=== PATIENT | male | born 1950 | race Caucasian/White ===

== ENCOUNTER → 2016-05-31 | Outpatient (CLI) | payer BC, OTHER ==
[~2016-05-31] MED LIST: GASTROGRAFIN SOLUTION 30ML (Q9963) As Ordered ONE; ISOVUE-370 76% 100ML VIAL (Q9967) As Ordered ONE
--- NOTE | 2016-06-03 09:24 | REP ---
CT of the abdomen and pelvis 05/31/2016 CT of the abdomen and pelvis performed initially without contrast with IV and oral contrast and delayed images of the abdomen Findings: Small amount of fibrotic scarring and/or atelectasis is present in lung bases bilaterally , left greater than right and lingula.. There is mild diffuse fatty infiltration of liver. Spleen pancreas are normal. Gallbladder without stones wall thickening or biliary dilatation. There are multiple bilateral renal cortical cysts, largest 6.6 cm diameter in the posterior superior pole of the right kidney. There is no hydronephrosis bilaterally and stomach and small bowel are within normal limits. The terminal ileum is normal. The appendix is without inflammation abdominal aorta is of normal course and caliber. Several small sub centimeter retroperitoneal nodes are present within the periaortic region in the upper abdomen and also few prominent venous collaterals. There is a 9 mm umbilical hernia containing omental fat only Bladder is contracted prostate is normal. There are scattered colonic diverticula. There is no free air or ascites. Impression 1. Unremarkable appendix 2. Gallbladder is slightly generous in size without stones or biliary dilatation. 3. Multiple bilateral renal cortical cysts, largest 6.6 cm off the posterior superior pole of the right kidney. 4. Multiple abdominal mesenteric lymph nodes, none of which are pathologically enlarged. These could be reactive in etiology or secondary to lymphoproliferative process. Clinical follow-up recommended. 5. Scattered colonic diverticula Signed by Aracelis Farris MD 06/03/2016 09:15 A
== END ==
LOC: M RAD 16:05
PROVIDERS: ATTEND Family Medicine
DX: R10.31 Right lower quadrant pain (principal)
CPT/HCPCS: 74178; Q9963; Q9967

== ENCOUNTER → 2016-07-01 | Outpatient (CLI) | payer BC, OTHER ==
--- NOTE | 2016-07-01 14:37 | REP ---
Clinical: Acute cough . Comparison: 10/14/2015 . Technique: PA and lateral. Findings: The mediastinum and cardiac silhouette are normal. The lung guaman are clear and without acute consolidation, effusion, or pneumothorax. The skeletal structures are intact and normal. Impression: 1. No acute cardiopulmonary process. Signed by Reynaldo Mcneal MD 07/01/2016 02:29 P
== END ==
LOC: M RAD 14:10
PROVIDERS: ATTEND Family Medicine
DX: R05 Cough (principal)

== ENCOUNTER → 2016-09-23 | Outpatient (CLI) | payer BC, OTHER ==
--- NOTE | 2016-09-23 14:39 | REP ---
Clinical: Follow up. History of renal cysts and prominent mesenteric lymph nodes. Technique: Axial contrast enhanced images from the lung bases to the pubic symphysis using oral and 100 ml Isovue 370 intravenous contrast material along with precontrast and delayed images of the abdomen as well as coronal and sagittal re-formations. Comparison: 05/31/2016. Findings: Lung bases demonstrate chronic bibasilar fibroatelectatic changes (left greater than right). Liver, spleen, pancreas, gallbladder, and bilateral adrenal glands are normal. Kidneys demonstrate prominent stable bilateral cysts measuring approximately 7.5 cm in the right kidney and 6.1 cm in left kidney. The enteric system is without obstruction or acute inflammatory process. Scattered sigmoid diverticula noted without acute diverticulitis. Normal terminal ileum and appendix identified in the right lower quadrant. This demonstrates normal bladder and age appropriate prostate/seminal vesicles. Scattered mesenteric lymph nodes are unchanged and nonspecific - measuring up to 1.5 cm in the left mid abdomen. No ascites. No free air. Small fat containing periumbilical hernia. Abdominal aorta and vasculature without aneurysm or dissection. Musculoskeletal structures demonstrate degenerative changes primarily involving the visualized thoracolumbar spine and pelvis. Impression: 1. Stable bilateral renal cysts. 2. Few scattered sigmoid diverticula without acute diverticulitis. 3. Mildly prominent mesenteric lymph nodes unchanged from prior examination measuring up to 1.5 cm maximal diameter in the left mid abdomen. 4. Further chronic stable changes as described above. No acute intra-abdominal or pelvic pathology otherwise noted. Signed by Reynaldo Mcneal MD 09/23/2016 02:30 P
== END ==
LOC: M RAD 11:33
PROVIDERS: ATTEND Family Medicine
DX: R93.5 Abnormal findings on diagnostic imaging of other abdominal regions, including retroperitoneum (principal); K57.30 Diverticulosis of large intestine without perforation or abscess without bleeding; N28.1 Cyst of kidney, acquired; R59.9 Enlarged lymph nodes, unspecified
CPT/HCPCS: 74178; Q9963; Q9967

== ENCOUNTER → 2016-10-02 | Outpatient (CLI) | payer BC, OTHER | LOC: M SMT 10:31 | PROVIDERS: ATTEND Urology | DX: N52.9 Male erectile dysfunction, unspecified (principal) ==

== ENCOUNTER → 2017-03-20 | Outpatient (REF) | payer MEDICARE, OTHER | LOC: M SMT 17:08 | PROVIDERS: ATTEND Urology | DX: N40.1 Benign prostatic hyperplasia with lower urinary tract symptoms (principal); Z01.818 Encounter for other preprocedural examination ==

== ENCOUNTER → 2017-06-11 | Outpatient (REF) | payer MEDICARE, OTHER ==
[2017-06-11 18:50] LABS: APPEARANCE, URINE CLEAR (CLEAR); BACTERIA, URINE AUTO 1+ (NEGATIVE); BILIRUBIN, URINE AUTO NEGATIVE (NEGATIVE); BLOOD, URINE BLOOD NEGATIVE (NEGATIVE); COLOR, URINE STRAW (YELLOW); GLUCOSE, URINE (UA) AUTO NEGATIVE (NEGATIVE); KETONE, URINE AUTO NEGATIVE (NEGATIVE); LEUKOCYTE ESTERASE, URINE AUTO TRACE (NEGATIVE); NITRITE, URINE AUTO NEGATIVE (NEGATIVE); PROTEIN, URINE AUTO NEGATIVE (NEGATIVE); RBC, URINE AUTO 0 /HPF (0-3); SPECIFIC GRAVITY URINE AUTO 1.003 (1.002-1.035); SQUAMOUS EPITHELIAL CELL UR AU 0 /HPF (0-6); UROBILINOGEN, URINE AUTO 0.2 mg/dL (0.0-2.0); WBC, URINE AUTO 4 /HPF (0-3)
== END ==
LOC: M SMT 17:06
DX: N40.1 Benign prostatic hyperplasia with lower urinary tract symptoms (principal)
CPT/HCPCS: 81001

== ENCOUNTER 2017-12-16 08:05 | Day surgery (SDC) | payer MEDICARE, BC, OTHER ==
[2017-12-16] MEDS: NS 1,000 ML IV (08:29)
[2017-12-16] MEDS ORDERED: PROPOFOL 200 MG/20 ML VIAL As Ordered (08:50)
[2017-12-16] MEDS ORDERED: LIDOCAINE 2% INJ 100 MG/5 ML SDV (FOR ANES.) As Ordered ×2 (08:50→09:37)
== END 2017-12-16 10:44 | disposition home or self-care (01) ==
LOC: M OPP 08:05
DX: Z12.11 Encounter for screening for malignant neoplasm of colon (principal); K64.0 First degree hemorrhoids; K57.30 Diverticulosis of large intestine without perforation or abscess without bleeding; I10 Essential (primary) hypertension; E78.5 Hyperlipidemia, unspecified; Z86.11 Personal history of tuberculosis; M19.90 Unspecified osteoarthritis, unspecified site; J45.909 Unspecified asthma, uncomplicated; G47.30 Sleep apnea, unspecified; N40.1 Benign prostatic hyperplasia with lower urinary tract symptoms; Z79.82 Long term (current) use of aspirin; Z79.899 Other long term (current) drug therapy; Z80.9 Family history of malignant neoplasm, unspecified
CPT/HCPCS: G0121

== ENCOUNTER 2018-01-15 18:49 | Emergency (ER) | payer OTHER, MEDICARE, BC | END 2018-01-15 21:29 | disposition home or self-care (01) | LOC: M ED 18:49 | DX: S16.1XXA Strain of muscle, fascia and tendon at neck level, initial encounter (principal); V49.49XA Driver injured in collision with other motor vehicles in traffic accident, initial encounter; Y92.410 Unspecified street and highway as the place of occurrence of the external cause; I10 Essential (primary) hypertension; J45.909 Unspecified asthma, uncomplicated; E78.00 Pure hypercholesterolemia, unspecified; G47.30 Sleep apnea, unspecified; Z79.899 Other long term (current) drug therapy; Z79.82 Long term (current) use of aspirin; Z91.012 Allergy to eggs | CPT/HCPCS: 70450 ==

== ENCOUNTER → 2018-01-15 | Outpatient (CLI) | payer OTHER | LOC: M LRY 17:40 | DX: M54.2 Cervicalgia (principal) | CPT/HCPCS: 72052 ==

== ENCOUNTER → 2018-03-02 | Outpatient (CLI) | payer MEDICARE, BC, OTHER ==
[2018-03-02 14:18] LABS: BASO % 0.8 % (0.0-1.0); EOS # 0.2 10^3/uL (0.0-0.50); EOS % 4.2 % (0.0-3.0); HEMATOCRIT 48.7 % (42.0-52.0); HEMOGLOBIN 15.6 g/dl (13.5-17.5); IMMATURE GRANULOCYTE % 0.4 % (0-3.0); LYMPH # 0.7 10^3/uL (1.5-4.5); LYMPH % 14.3 % (24.0-44.0); MEAN CORPUSCULAR HEMOGLOBIN 28.9 pg (27.0-33.0); MEAN CORPUSCULAR VOLUME 90.4 fl (80.0-96.0); MONO # 0.5 10^3/uL (0.0-0.8); MONO % 10.9 % (0.0-5.0); NEUTROPHILS # 3.3 10^3/uL (1.8-7.7); NEUTROPHILS % 69.4 % (36.0-66.0); PLATELET COUNT, AUTOMATED 240 10^3/uL (150-450); RED BLOOD COUNT 5.39 10^6/uL (4.30-6.10); RED CELL DISTRIBUTION WIDTH 13.1 % (11.5-14.5); WHITE BLOOD COUNT 4.8 10^3/uL (4.0-10.0)
[2018-03-02 15:05] LABS: ALBUMIN 4.1 GM/DL (3.2-5.2); ALBUMIN/GLOBULIN RATIO 1.28 (1.00-1.93); ALKALINE PHOSPHATASE 82 U/L (45-117); ALT/SGPT 49 U/L (12-78); ANION GAP 8 MEQ/L (8-16); AST/SGOT 35 U/L (7-37); BILIRUBIN,TOTAL 0.4 MG/DL (0.2-1.0); BLOOD UREA NITROGEN 27 MG/DL (7-18); CALCIUM LEVEL 9.1 MG/DL (8.8-10.2); CARBON DIOXIDE LEVEL 29 MEQ/L (21-32); CHLORIDE LEVEL 105 MEQ/L (98-107); CREATININE FOR GFR 1.16 MG/DL (0.70-1.30); GLOMERULAR FILTRATION RATE > 60.0 (>49); GLUCOSE, FASTING 102 MG/DL (70-100); POTASSIUM SERUM 4.3 MEQ/L (3.5-5.1); SODIUM LEVEL 142 MEQ/L (136-145); TOTAL PROTEIN 7.3 GM/DL (6.4-8.2)
== END ==
LOC: M SMT 09:24
DX: Z01.812 Encounter for preprocedural laboratory examination (principal); M79.671 Pain in right foot; M20.41 Other hammer toe(s) (acquired), right foot
CPT/HCPCS: 80053

== ENCOUNTER 2018-03-13 08:38 | Day surgery (SDC) | payer MEDICARE, BC, OTHER ==
[2018-03-13] MEDS: LR 1,000 ML IV ×2 (09:28)
[2018-03-13] MEDS ORDERED: LIDOCAINE 2% MDV 20 ML VIAL As Ordered ×2 (10:27)
[2018-03-13] MEDS ORDERED: BUPIVACAINE HCL 0.5% 30 ML VIAL As Ordered ×2 (10:27)
[2018-03-13] MEDS ORDERED: dexameTHASONE 4 MG/ML 1ML VIAL (J1100) As Ordered ×2 (10:27)
[2018-03-13] MEDS ORDERED: NEOSPORIN GU IRRIG 20 ML VIAL As Ordered ×2 (10:27)
[2018-03-13] MEDS ORDERED: BACITRACIN PWD 50,000 UNITS VIAL As Ordered ×2 (10:27)
[2018-03-13] MEDS ORDERED: MIDAZOLAM INJ 2 MG/2 ML VIAL (J2250) As Ordered ×2 (10:55)
[2018-03-13] MEDS ORDERED: LIDOCAINE 2% INJ 100 MG/5 ML SDV (FOR ANES.) As Ordered ×2 (10:55)
[2018-03-13] MEDS ORDERED: KETOROLAC 60 MG/2 ML VIAL (J1885) As Ordered ×4 (10:55)
[2018-03-13] MEDS ORDERED: fentaNYL 100 MCG/2 ML INJECTION (J3010) As Ordered ×2 (10:55)
[2018-03-13] MEDS ORDERED: METOCLOPRAMIDE INJ 10MG/2ML VIAL (J2765) As Ordered ×2 (10:55)
[2018-03-13] MEDS ORDERED: PROPOFOL 200 MG/20 ML VIAL As Ordered ×2 (10:55)
[2018-03-13] MEDS ORDERED: ONDANSETRON 4MG/2ML VIAL (J2405) As Ordered ×2 (10:55)
[2018-03-13] MEDS ORDERED: ONDANSETRON 4MG/2ML VIAL (J2405) IV ×2 (12:15)
[2018-03-13] MEDS ORDERED: PERCOCET 5MG/325MG TAB PO ×2 (12:15)
== END 2018-03-13 13:00 | disposition home or self-care (01) ==
LOC: M SDC 08:38
DX: M20.41 Other hammer toe(s) (acquired), right foot (principal); M20.61 Acquired deformities of toe(s), unspecified, right foot; E78.5 Hyperlipidemia, unspecified; I10 Essential (primary) hypertension; N40.0 Benign prostatic hyperplasia without lower urinary tract symptoms; Z79.899 Other long term (current) drug therapy; J45.909 Unspecified asthma, uncomplicated
CPT/HCPCS: 28285

== ENCOUNTER 2018-10-09 14:07 | Emergency (ER) | payer MEDICARE, BC, OTHER ==
[~2018-10-09] VITALS: Ht 185.4 cm; Wt 109.6 kg
[~2018-10-09 14:07] MED LIST changes: +ASPI-255 PO; +ASPI1CHW2 PO; +ATOR1TAB21 PO; +BENA25CA4 PO; +FLON1SPR; -GASTROGRAFIN SOLUTION 30ML (Q9963) As Ordered ONE; +IBUP200C25 PO; -ISOVUE-370 76% 100ML VIAL (Q9967) As Ordered ONE; +LOSA50TA88 PO; +MONT10TA2 PO; +MULTCAP PO; +PROAAER10 INH; +SILD1TAB8 PO; +SYMB16INH INH; +SYMB80INH INH; +TYLE500T78 PO
[2018-10-09] MEDS ORDERED: VIAG100T (14:15)
[2018-10-09] MEDS ORDERED: CELE1CAP9 (14:15)
[2018-10-09] MEDS ORDERED: ROBA500T PO (15:21)
[2018-10-09] MEDS ORDERED: IBUP-1022 PO (15:21)
[2018-10-09 15:32] VITALS: BP 161/94
== END 2018-10-09 15:47 | disposition home or self-care (01) ==
LOC: M ED 14:07
DX: S39.012A Strain of muscle, fascia and tendon of lower back, initial encounter (principal); Y92.79 Other farm location as the place of occurrence of the external cause; Y93.K9 Activity, other involving animal care; I10 Essential (primary) hypertension; J45.909 Unspecified asthma, uncomplicated; Z79.51 Long term (current) use of inhaled steroids; Z79.899 Other long term (current) drug therapy; Z91.012 Allergy to eggs

== ENCOUNTER → 2019-07-29 | Outpatient (CLI) | payer MEDICARE, BC, OTHER ==
[~2019-07-29] MED LIST changes: +CELE1CAP9; +IBUP-1022 PO; -MONT10TA2 PO; +MONT10TA4 PO; +ROBA500T PO; +VIAG100T
--- NOTE | 2019-08-03 15:56 | SLEEPCENT ---
DATE OF PROCEDURE: 07/29/2019 ORDERED BY: Emi Levy NP Nocturnal polysomnography was performed for the titration of pressure therapy in this patient with obstructive sleep apnea syndrome. For testing a ResMed AirFit F20 full-face mask of medium size was used; 13 cm of water pressure was initially applied to the circuit and the lights were extinguished. 7 hours and 37 minutes of data were reviewed. There were 248 minutes of sleep identified. Sleep latency was prolonged at 24 minutes. Rapid eye movement (REM) latency was prolonged at 191 minutes. Sleep architecture improved later in the study on optimal pressure therapy. Overall sleep efficiency was reduced by periods of wake to 56%. The patient's electrocardiogram showed a sinus rhythm with an average heart rate of 68 beats per minute. Electroencephalogram (EEG) showed normal waveforms for awake and sleep. Respiratory events were palliated with CPAP at a pressure of +16. IMPRESSION: Obstructive sleep apnea syndrome (G47.33). RECOMMENDATIONS: Nightly use of pressure therapy 16 cm of water.
== END ==
LOC: M SLEEP 20:13
PROVIDERS: ATTEND Nurse Practitioner Adult Health
DX: G47.33 Obstructive sleep apnea (adult) (pediatric) (principal)

== ENCOUNTER → 2020-04-21 | Outpatient (CLI) | payer OTHER ==
[~2020-04-21] MED LIST changes: -MONT10TA4 PO; +MONT5TAB2 PO
--- NOTE | 2020-04-21 09:52 | REPVR ---
PROCEDURE INFORMATION: Exam: MR Lumbar Spine Without Contrast. Exam date and time: 04/21/2020 8:07 AM Age: 70 years old Clinical indication: Low back pain; Patient HX: Lbp TECHNIQUE: Imaging protocol: Multiplanar magnetic resonance images of the lumbar spine without intravenous contrast. COMPARISON: No relevant prior studies available. FINDINGS: Vertebrae: Modic type 1 changes along the endplates L2-L3 and L3-L4 discs. Spinal cord: Conus at L1.. L1-L2: Disc desiccation changes and bilateral facet hypertrophy. Mild to moderate stenosis of the spinal canal due to combination of broad central disc bulge and buckling of ligamentum flavum. L2-L3: Marked disc desiccation changes with loss of intervertebral disc height. Small annular fiber tear. Mild stenosis of the spinal canal due to broad central disc bulge. No neural foraminal stenosis. L3-L4: Marked desiccation changes with loss of intervertebral disc height. Severe stenosis of the spinal canal and right neural foramen due to combination right paracentral disc bulge and severe right facet arthropathy. Clumping of the cauda equina is noted at this level.. L4-L5: Marked desiccation changes with loss of intervertebral disc height. Severe stenosis of the spinal canal and bilateral neural foramen due to combination broad left paracentral disc protrusion and severe bilateral facet arthropathy. Clumping of the cauda equina is noted at this level.. L5-S1: Disc desiccation changes. Bilateral facet arthropathy. No significant spinal canal stenosis. Mild bilateral neural foraminal stenosis. Soft tissues: Unremarkable. 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 Electronically signed by: Christoph Page On 04/21/2020 09:51:54 AM
== END ==
LOC: M RAD 06:43
PROVIDERS: ATTEND Family Medicine
DX: M48.061 Spinal stenosis, lumbar region without neurogenic claudication (principal); M25.78 Osteophyte, vertebrae

== ENCOUNTER → 2021-02-26 | Outpatient (CLI) | payer OTHER, MEDICARE, BC ==
[~2021-02-26] MED LIST changes: +MONT10TA10 PO; -MONT5TAB2 PO
[2021-02-26 14:21] LABS: HEMATOCRIT 50.4 % (42.0-52.0); HEMOGLOBIN 16.3 g/dl (13.5-17.5); MEAN CORPUSCULAR HEMOGLOBIN 29.1 pg (27.0-33.0); MEAN CORPUSCULAR HGB CONC 32.3 g/dl (32.0-36.5); PLATELET COUNT, AUTOMATED 221 10^3/uL (150-450); WHITE BLOOD COUNT 5.4 10^3/uL (4.0-10.0)
[2021-02-26 14:52] LABS: ALT/SGPT 39 U/L (12-78); BILIRUBIN,TOTAL 0.5 MG/DL (0.2-1.0); BLOOD UREA NITROGEN 22 MG/DL (7-18); CALCIUM LEVEL 8.8 MG/DL (8.8-10.2); CARBON DIOXIDE LEVEL 29 MEQ/L (21-32); CHLORIDE LEVEL 106 MEQ/L (98-107); CHOLESTEROL LEVEL 182 MG/DL (<200); CHOLESTEROL RISK RATIO 2.983 (<5); CREATININE FOR GFR 1.24 MG/DL (0.70-1.30); GLOMERULAR FILTRATION RATE > 60.0 (>49); GLUCOSE, FASTING 100 MG/DL (70-100); HDL CHOLESTEROL 61 MG/DL (>40); LDL CHOLESTEROL 97 MG/DL (<100); NON-HDL-C 121 MG/DL; POTASSIUM SERUM 4.4 MEQ/L (3.5-5.1); SODIUM LEVEL 140 MEQ/L (136-145); TOTAL PROTEIN 7.5 GM/DL (6.4-8.2); TRIGLYCERIDES LEVEL 121 MG/DL (<150)
== END ==
LOC: M PLALAB 09:10
PROVIDERS: ATTEND Family Medicine
DX: I10 Essential (primary) hypertension (principal)

== ENCOUNTER → 2021-03-14 | Outpatient (CLI) | payer MEDICARE, BC, OTHER ==
[2021-03-15 23:12] LABS: PSA % FREE 10.6 % (.); PSA FREE 0.55 ng/mL; PSA TOTAL 5.2 ng/mL (0.0-4.0)
== END ==
LOC: M PLALAB 13:00
PROVIDERS: ATTEND Nurse Practitioner Women's Health
DX: R97.20 Elevated prostate specific antigen [PSA] (principal)

== ENCOUNTER → 2021-04-06 | Outpatient (CLI) | payer MEDICARE, BC, OTHER ==
[~2021-04-06] MED LIST changes: +LOSA50TA28 PO; -LOSA50TA88 PO; -MONT10TA10 PO; +MONT10TA97 PO
== END ==
LOC: M LAB 13:43
PROVIDERS: ATTEND Nurse Practitioner Women's Health
DX: R97.20 Elevated prostate specific antigen [PSA] (principal)

== ENCOUNTER → 2021-04-17 | Outpatient (REF) | payer MEDICARE, BC, OTHER | LOC: M SMT PRO 13:05 | PROVIDERS: ATTEND Urology | DX: C61 Malignant neoplasm of prostate (principal); R97.20 Elevated prostate specific antigen [PSA] | CPT/HCPCS: 55700; 76942; G0416; G0463 ==

== ENCOUNTER → 2021-07-17 | Outpatient (CLI) | payer MEDICARE, BC, OTHER | LOC: M PLALAB 14:37 | PROVIDERS: ATTEND Urology | DX: C61 Malignant neoplasm of prostate (principal) ==

== ENCOUNTER → 2021-10-23 | Outpatient (CLI) | payer MEDICARE, BC, OTHER | LOC: M PLALAB 13:23 | PROVIDERS: ATTEND Family Medicine | DX: E55.9 Vitamin D deficiency, unspecified (principal); C61 Malignant neoplasm of prostate ==

== ENCOUNTER → 2021-10-23 | Outpatient (CLI) | payer MEDICARE, BC, OTHER | LOC: M PLALAB 13:25 | PROVIDERS: ATTEND Urology | DX: C61 Malignant neoplasm of prostate (principal) ==

== ENCOUNTER → 2022-04-17 | Outpatient (CLI) | payer MEDICARE, BC, OTHER ==
[~2022-04-17] MED LIST changes: +**SFHN** LIDOCAINE 1% MDV 20ML VIAL ONE; +**SFHN** methylPREDNISolone 40MG 1ML VIAL ONE; +ISOVUE-300 61% 50ML VIAL ONE
== END ==
LOC: M PLAIMG 13:35
PROVIDERS: ATTEND Physician Assistant Surgical
DX: M75.52 Bursitis of left shoulder (principal)
CPT/HCPCS: 20610; 76000; J2920; Q9967

== ENCOUNTER → 2022-05-14 | Outpatient (CLI) | payer MEDICARE, BC, OTHER ==
[~2022-05-14] MED LIST changes: -**SFHN** LIDOCAINE 1% MDV 20ML VIAL ONE; -**SFHN** methylPREDNISolone 40MG 1ML VIAL ONE; -ISOVUE-300 61% 50ML VIAL ONE
[2022-05-14 14:30] LABS: CHOLESTEROL RISK RATIO 2.93 (<5); HDL CHOLESTEROL 61.3 MG/DL (>40); LDL CHOLESTEROL 93.7 MG/DL (<100)
[2022-05-14 14:32] LABS: TOTAL 25(OH) VITAMIN D 32.7 NG/ML (20.0-100.0)
== END ==
LOC: M PLALAB 09:53
PROVIDERS: ATTEND Family Medicine
DX: E55.9 Vitamin D deficiency, unspecified (principal); E78.49 Other hyperlipidemia; C61 Malignant neoplasm of prostate

== ENCOUNTER → 2022-05-14 | Outpatient (CLI) | payer MEDICARE, BC, OTHER | LOC: M PLALAB 09:55 | PROVIDERS: ATTEND Urology | DX: C61 Malignant neoplasm of prostate (principal); E55.9 Vitamin D deficiency, unspecified; E78.49 Other hyperlipidemia ==

== ENCOUNTER → 2022-07-16 | Outpatient (CLI) | payer MEDICARE, BC, OTHER ==
[~2022-07-16] MED LIST changes: +PROHANCE 279.3MG/ML 15ML VIAL ONE; +PROHANCE 279.3MG/ML 5ML VIAL ONE
== END ==
LOC: M PLAIMG 07:56
PROVIDERS: ATTEND Urology
DX: C61 Malignant neoplasm of prostate (principal)
CPT/HCPCS: 72197; A9576

== ENCOUNTER → 2022-09-03 | Outpatient (REF) | payer MEDICARE, BC, OTHER ==
[~2022-09-03] MED LIST changes: -PROHANCE 279.3MG/ML 15ML VIAL ONE; -PROHANCE 279.3MG/ML 5ML VIAL ONE
== END ==
LOC: M SMT 10:11
PROVIDERS: ATTEND Urology
DX: C61 Malignant neoplasm of prostate (principal)

== ENCOUNTER 2022-10-08 07:30 | Inpatient (IN) | payer MEDICARE, BC, OTHER ==
[~2022-10-08] VITALS: Ht 185.4 cm; Wt 112.8 kg
[~2022-10-08 07:30] MED LIST changes: +CIAL20TA PO; +CURC500C2 PO; +D31000CA4 PO; +EXCETAB32 PO; +LORA-622 PO; +PRAV20TA2 PO; +PROA1AER2 IN; +SUMA50TA2 PO; +VENL37TA PO
[2022-10-23] MEDS ORDERED: ceFAZolin SOD 2 GM in IV 1 EA IV ONE (06:00)
[2022-10-23] MEDS ORDERED: LIDOCAINE 2% 100MG/5ML SDV (FOR ANES.) As Ordered ONE (10:16)
[2022-10-23] MEDS ORDERED: ETOMIDATE INJ 20MG/10ML VIAL As Ordered ONE (10:16)
[2022-10-23] MEDS ORDERED: ROCURONIUM BROMIDE 50MG/5ML VIAL As Ordered ONE ×3 (10:16→17:39)
[2022-10-23] MEDS ORDERED: METOCLOPRAMIDE INJ 10MG/2ML VIAL As Ordered ONE (10:17)
[2022-10-23] MEDS ORDERED: ONDANSETRON 4MG 2ML VIAL As Ordered ONE (10:17)
[2022-10-23] MEDS ORDERED: LR 1,000 ML IV SCH ×2 (11:10→20:10)
[2022-10-23] MEDS ORDERED: MIDAZOLAM INJ 2MG/2ML VIAL As Ordered ONE (14:09)
[2022-10-23] MEDS ORDERED: fentaNYL 100 MCG/2 ML INJECTION As Ordered ONE (14:09)
[2022-10-23] MEDS ORDERED: HYDROmorphone HCL 2MG/ML 1ML VIAL As Ordered ONE (14:09)
[2022-10-23] MEDS ORDERED: ACETAMINOPHEN 1000MG 100ML IV BAG IV ONE (14:25)
[2022-10-23] MEDS ORDERED: PERCOCET 5MG/325MG TAB PO PRN ×2 (15:15)
[2022-10-23] MEDS ORDERED: ACETAMINOPHEN TAB 650MG DOSE (2X325MG) PO PRN (15:15)
[2022-10-23] MEDS ORDERED: ALBUTEROL 90 MCG/ACT 8GM HFA INHALER INH PRN (15:15)
[2022-10-23] MEDS ORDERED: NS 1,000 ML IV SCH (15:15)
[2022-10-23] MEDS ORDERED: ONDANSETRON 4MG 2ML VIAL IV PRN ×2 (15:15→20:10)
[2022-10-23] MEDS ORDERED: LIDOCAINE 1% SDV 30ML VIAL As Ordered ONE (15:22)
[2022-10-23] MEDS ORDERED: propofoL 200 MG/20 ML VIAL As Ordered ONE (15:23)
[2022-10-23] MEDS ORDERED: HEPARIN SOD (PORCINE) 5000UNITS/ML 1ML VIAL/SYRINGE As Ordered ONE (16:17)
[2022-10-23] MEDS ORDERED: PHENYLephrine 500MCG 5ML (100MCG/ML) SYRINGE As Ordered ONE (16:26)
[2022-10-23] MEDS ORDERED: LABETALOL 100MG/20ML VIAL As Ordered ONE (16:36)
[2022-10-23] MEDS ORDERED: ACETAMINOPHEN 1000MG 100ML IV BAG As Ordered ONE (19:12)
[2022-10-23] MEDS ORDERED: fentaNYL 100 MCG/2 ML INJECTION IV PRN (20:10)
[2022-10-23] MEDS ORDERED: oxyCODONE 5MG TAB PO PRN (20:10)
[2022-10-23] MEDS ORDERED: HYDROMORPHONE HCL 0.5 MG/ 0.5 ML SYRINGE IV PRN (20:10)
[2022-10-23 20:41] LABS: HEMATOCRIT 47.9 % (42.0-52.0); HEMOGLOBIN 15.8 g/dl (13.5-17.5); MEAN CORPUSCULAR VOLUME 87.9 fl (80.0-96.0); PLATELET COUNT, AUTOMATED 206 10^3/uL (150-450); RED BLOOD COUNT 5.45 10^6/uL (4.30-6.10); WHITE BLOOD COUNT 12.9 10^3/uL (4.0-10.0)
[2022-10-23] MEDS ORDERED: PRAVASTATIN 20 MG TAB PO SCH (21:00)
[2022-10-23] MEDS ORDERED: MONTELUKAST 10 MG TAB PO SCH (21:00)
[2022-10-23] MEDS ORDERED: LOSARTAN 50MG TABLET PO SCH (21:00)
[2022-10-23] MEDS ORDERED: VENLAFAXINE **XR** 37.5 MG CAPSULE PO SCH (21:00)
[2022-10-23] MEDS ORDERED: VENLAFAXINE 37.5 MG TAB PO SCH (21:00)
[2022-10-23 21:03] LABS: BLOOD UREA NITROGEN 16 MG/DL (9-23); CALCIUM LEVEL 8.1 MG/DL (8.3-10.6); CARBON DIOXIDE LEVEL 26 MMOL/L (20-31); CHLORIDE LEVEL 104 MMOL/L (98-107); CREATININE FOR GFR 1.09 MG/DL (0.70-1.30); GLOMERULAR FILTRATION RATE > 60.0 (>42); GLUCOSE, FASTING 161 MG/DL (74-106); POTASSIUM SERUM 3.7 MMOL/L (3.5-5.1); SODIUM LEVEL 138 MMOL/L (136-145)
[2022-10-23 21:40] VITALS: BP 147/85; TEMP 96.8; O2SAT 95
[2022-10-23 22:11] VITALS: BP 147/85; TEMP 97.3; O2SAT 94
[2022-10-23] MEDS ORDERED: PROMETHAZINE 25MG/ML 1ML VIAL IV PRN (22:25)
[2022-10-23] MEDS ORDERED: CURC500C PO (22:36)
[2022-10-23] MEDS ORDERED: EXCETAB32 PO (22:36)
[2022-10-23] MEDS ORDERED: POTA99TA14 PO (22:36)
[2022-10-23] MEDS ORDERED: ALBU8.5H INH (22:36)
[2022-10-23] MEDS ORDERED: VITA100093 PO (22:36)
[2022-10-23] MEDS ORDERED: EQL0.65S NARES (22:36)
[2022-10-23] MEDS ORDERED: CELE1CAP4 PO (22:36)
[2022-10-23] MEDS ORDERED: VENL37.598 PO (22:36)
[2022-10-23] MEDS ORDERED: BENA25CA4 PO (22:36)
[2022-10-23] MEDS ORDERED: HOME MED LIST COMPLETE! XX SCH (22:40)
[2022-10-23 22:46] VITALS: BP 148/87; TEMP 97.2; O2SAT 95
[2022-10-23 23:44] VITALS: BP 146/80; TEMP 97.3; O2SAT 94
[2022-10-24 00:10] VITALS: BP 146/80
[2022-10-24] MEDS: ceFAZolin SOD 1 GM in D5W MINI-BAG PLUS 50 ML IV SCH ×2 (00:10→06:16)
[2022-10-24 00:42] VITALS: BP 147/82; TEMP 97.7; O2SAT 93
[2022-10-24 02:10] VITALS: BP 123/74; TEMP 97.9; O2SAT 91
[2022-10-24 05:58] VITALS: BP 114/67; TEMP 98.2; O2SAT 96
[2022-10-24] MEDS: SYMBICORT 160/4.5MCG INHALER 6GM INH SCH ×2 (07:19→20:00)
[2022-10-24 08:21] LABS: HEMATOCRIT 45.7 % (42.0-52.0); MEAN CORPUSCULAR HEMOGLOBIN 29.4 pg (27.0-33.0); MEAN CORPUSCULAR HGB CONC 32.8 g/dl (32.0-36.5); MEAN CORPUSCULAR VOLUME 89.6 fl (80.0-96.0); PLATELET COUNT, AUTOMATED 204 10^3/uL (150-450); WHITE BLOOD COUNT 8.4 10^3/uL (4.0-10.0)
[2022-10-24 08:45] LABS: BLOOD UREA NITROGEN 20 MG/DL (9-23); CALCIUM LEVEL 7.9 MG/DL (8.3-10.6); CARBON DIOXIDE LEVEL 28 MMOL/L (20-31); CHLORIDE LEVEL 103 MMOL/L (98-107); CREATININE FOR GFR 1.01 MG/DL (0.70-1.30); GLOMERULAR FILTRATION RATE > 60.0 (>42); GLUCOSE, FASTING 122 MG/DL (74-106); POTASSIUM SERUM 3.9 MMOL/L (3.5-5.1); SODIUM LEVEL 137 MMOL/L (136-145)
[2022-10-24] MEDS ORDERED: SUMAtriptan SUCCINATE 25 MG TAB PO PRN (09:00)
[2022-10-24] MEDS ORDERED: LORATADINE 10 MG TAB PO SCH (09:00)
[2022-10-24] MEDS ORDERED: DOCUSATE SODIUM 100MG CAPSULE PO SCH (09:00)
[2022-10-24 10:00] VITALS: BP 115/85; TEMP 98.1; O2SAT 92
[2022-10-24 14:00] VITALS: BP 123/79; TEMP 97.9; O2SAT 94
[2022-10-24] MEDS ORDERED: HEPARIN SOD (PORCINE) 5000UNITS/ML 1ML VIAL/SYRINGE SC SCH (14:00)
[2022-10-24] MEDS ORDERED: CIPR-249 PO (17:22)
[2022-10-24] MEDS ORDERED: PERCOCET PO (17:22)
[2022-10-24] MEDS ORDERED: COLA100C5 PO (17:22)
== END 2022-10-24 19:00 | disposition home or self-care (01) | DRG 708 ==
LOC: M OR 10-23 10:26 → M MS5PR 10-23 21:00
PROVIDERS: ADMIT Urology; ATTEND Urology
PROC: 07BC4ZX Excision of Pelvis Lymphatic, Percutaneous Endoscopic Approach, Diagnostic (ICD-10-PCS; 2022-10-23)
PROC: 8E0W4CZ Robotic Assisted Procedure of Trunk Region, Percutaneous Endoscopic Approach (ICD-10-PCS; 2022-10-23)
PROC: 0VT04ZZ Resection of Prostate, Percutaneous Endoscopic Approach (ICD-10-PCS; principal; 2022-10-23 11:45)
DX: C61 Malignant neoplasm of prostate (principal); I10 Essential (primary) hypertension; N40.0 Benign prostatic hyperplasia without lower urinary tract symptoms; N52.9 Male erectile dysfunction, unspecified; Z79.82 Long term (current) use of aspirin; Z79.899 Other long term (current) drug therapy; Z83.3 Family history of diabetes mellitus; Z91.012 Allergy to eggs; Z80.42 Family history of malignant neoplasm of prostate

== ENCOUNTER → 2022-10-21 | Outpatient (CLI) | payer MEDICARE, BC, OTHER ==
[~2022-10-21] MED LIST changes: +ALBU8.5H INH; +CELE1CAP4 PO; +CIPR-249 PO; +COLA100C5 PO; +CURC500C PO; +EQL0.65S NARES; +PERCOCET PO; +POTA99TA14 PO; +VENL37.598 PO; +VITA100093 PO
== END ==
LOC: M EKG 14:47
PROVIDERS: ATTEND Urology
DX: Z01.818 Encounter for other preprocedural examination (principal); C61 Malignant neoplasm of prostate

== ENCOUNTER 2022-11-22 18:33 | Inpatient (IN) | payer MEDICARE, BC, OTHER ==
[~2022-11-22] VITALS: Ht 185.4 cm; Wt 109.1 kg
[2022-11-22 20:12] LABS: BASO % 0.3 % (0.0-1.0); EOS % 0.2 % (0.0-3.0); HEMATOCRIT 42.6 % (42.0-52.0); HEMOGLOBIN 13.9 g/dl (13.5-17.5); LYMPH # 0.9 10^3/uL (1.5-5.0); LYMPH % 8.3 % (24.0-44.0); MEAN CORPUSCULAR HEMOGLOBIN 29.1 pg (27.0-33.0); MEAN CORPUSCULAR HGB CONC 32.6 g/dl (32.0-36.5); MEAN CORPUSCULAR VOLUME 89.1 fl (80.0-96.0); MONO # 1.2 10^3/uL (0.0-0.8); MONO % 10.8 % (2.0-8.0); NEUTROPHILS # 8.9 10^3/uL (1.5-8.5); NEUTROPHILS % 79.9 % (36.0-66.0); PLATELET COUNT, AUTOMATED 208 10^3/uL (150-450); RED BLOOD COUNT 4.78 10^6/uL (4.30-6.10); WHITE BLOOD COUNT 11.2 10^3/uL (4.0-10.0)
[2022-11-22 20:40] LABS: LIPASE 32 U/L (12-53)
[2022-11-22 20:42] LABS: ALBUMIN 3.4 G/DL (3.2-5.2); ALKALINE PHOSPHATASE 103 U/L (46-116); ALT/SGPT 30 U/L (7.0-40); AST/SGOT 20 U/L (<34); BILIRUBIN,DIRECT 0.3 MG/DL (<0.4); BILIRUBIN,TOTAL 0.7 MG/DL (0.3-1.2); BLOOD UREA NITROGEN 15 MG/DL (9-23); CALCIUM LEVEL 8.5 MG/DL (8.3-10.6); CARBON DIOXIDE LEVEL 29 MMOL/L (20-31); CHLORIDE LEVEL 102 MMOL/L (98-107); CREATININE FOR GFR 1.01 MG/DL (0.70-1.30); GLOMERULAR FILTRATION RATE > 60.0 (>42); GLUCOSE, FASTING 152 MG/DL (74-106); POTASSIUM SERUM 4.2 MMOL/L (3.5-5.1); SODIUM LEVEL 139 MMOL/L (136-145)
[2022-11-22] MEDS ORDERED: IBUPROFEN 800 MG TAB PO ONE (22:15)
[2022-11-23 03:47] LABS: GC DNA AMPLIFICATION NEGATIVE (NEGATIVE)
[2022-11-23] MEDS ORDERED: cefTRIAXone SOD 1GM VIAL IM ONE (07:05)
[2022-11-23] MEDS ORDERED: LIDOCAINE 1% SDV 5ML VIAL DILUENT ONE (07:05)
[2022-11-23] MEDS ORDERED: ISOVUE-370 76% 100ML VIAL As Ordered ONE (07:14)
[2022-11-23] MEDS ORDERED: cefTRIAXone SOD 1 GM in D5W MINI-BAG PLUS 50 ML IV ONE (08:35)
[2022-11-23] MEDS ORDERED: ACETAMINOPHEN 500 MG TAB PO ONE (08:50)
[2022-11-23] MEDS: LORATADINE 10 MG TAB PO SCH (09:00)
[2022-11-23] MEDS ORDERED: MED REC IN PROGRESS XX SCH (09:10)
[2022-11-23] MEDS ORDERED: TETRACAINE 0.5% OPHTH SOLN 4ML OD ONE (09:15)
[2022-11-23] MEDS ORDERED: FLUORESCEIN OPHTH 1MG STRIP OD ONE (09:15)
[2022-11-23] MEDS ORDERED: HOME MED LIST COMPLETE! XX SCH (09:40)
[2022-11-23] MEDS ORDERED: SODIUM CHLORIDE NASAL 0.65% SPRAY BTL (OCEAN) PRN (10:00)
[2022-11-23] MEDS ORDERED: ALBUTEROL 90 MCG/ACT 8GM HFA INHALER INH PRN (10:00)
[2022-11-23] MEDS ORDERED: FLUTICASONE PROP 0.05% NASAL SPRAY 16 GM (FLONASE) PRN (10:00)
[2022-11-23] MEDS ORDERED: diphenhydrAMINE 25MG CAP PO PRN (10:00)
[2022-11-23 10:18] LABS: BASO % 0.3 % (0.0-1.0); EOS % 0.3 % (0.0-3.0); HEMATOCRIT 40.1 % (42.0-52.0); HEMOGLOBIN 13.4 g/dl (13.5-17.5); LYMPH # 0.7 10^3/uL (1.5-5.0); MEAN CORPUSCULAR HEMOGLOBIN 29.5 pg (27.0-33.0); MEAN CORPUSCULAR HGB CONC 33.4 g/dl (32.0-36.5); MEAN CORPUSCULAR VOLUME 88.3 fl (80.0-96.0); MONO # 1.3 10^3/uL (0.0-0.8); MONO % 12.1 % (2.0-8.0); NEUTROPHILS # 8.4 10^3/uL (1.5-8.5); NEUTROPHILS % 79.8 % (36.0-66.0); PLATELET COUNT, AUTOMATED 202 10^3/uL (150-450); RED BLOOD COUNT 4.54 10^6/uL (4.30-6.10); WHITE BLOOD COUNT 10.5 10^3/uL (4.0-10.0)
[2022-11-23 10:33] LABS: INR 1.07; PROTHROMBIN TIME 14.1 SECONDS (12.5-14.5)
[2022-11-23 10:34] LABS: PARTIAL THROMBOPLASTIN TIME 33.2 SECONDS (24.8-34.2)
[2022-11-23 10:36] LABS: ALKALINE PHOSPHATASE 91 U/L (46-116); ALT/SGPT 32 U/L (7.0-40); AST/SGOT 48 U/L (<34); BILIRUBIN,TOTAL 0.8 MG/DL (0.3-1.2); BLOOD UREA NITROGEN 17 MG/DL (9-23); CALCIUM LEVEL 7.9 MG/DL (8.3-10.6); CARBON DIOXIDE LEVEL 26 MMOL/L (20-31); CHLORIDE LEVEL 100 MMOL/L (98-107); CREATININE FOR GFR 0.94 MG/DL (0.70-1.30); GLOMERULAR FILTRATION RATE > 60.0 (>42); GLUCOSE, FASTING 151 MG/DL (74-106); POTASSIUM SERUM 5.6 MMOL/L (3.5-5.1); SODIUM LEVEL 137 MMOL/L (136-145); TOTAL PROTEIN 6.6 G/DL (5.7-8.2)
[2022-11-23] MEDS: NS 1,000 ML IV SCH ×2 (12:01→21:01)
[2022-11-23] MEDS: PIPERACILLIN/TAZOBACTAM SOD 3.375 GM in D5W MINI-BAG PLUS 50 ML IV SCH ×2 (16:41→21:01)
[2022-11-23 18:20] VITALS: BP 154/70; TEMP 101.1; O2SAT 97
[2022-11-23] MEDS: ACETAMINOPHEN TAB 650MG DOSE (2X325MG) PO PRN (18:33)
[2022-11-23] MEDS: SYMBICORT 160/4.5MCG INHALER 6GM INH SCH (20:07)
[2022-11-23] MEDS: MONTELUKAST 10 MG TAB PO SCH (20:57)
[2022-11-23] MEDS: CelecoXIB (CeleBREX) 100 MG CAP PO SCH (20:57)
[2022-11-23] MEDS: PRAVASTATIN 20 MG TAB PO SCH (20:57)
[2022-11-23] MEDS: LOSARTAN 50MG TABLET PO SCH (21:00)
[2022-11-23] MEDS: VENLAFAXINE **XR** 37.5 MG CAPSULE PO SCH (21:01)
[2022-11-23 21:55] VITALS: BP 139/80; TEMP 100.9; O2SAT 95
[2022-11-23] MEDS ORDERED: NS 500 ML IV ONE (22:15)
[2022-11-23 22:36] VITALS: TEMP 98.9
[2022-11-23 23:33] LABS: BLOOD UREA NITROGEN 18 MG/DL (9-23); CALCIUM LEVEL 8.2 MG/DL (8.3-10.6); CARBON DIOXIDE LEVEL 28 MMOL/L (20-31); CHLORIDE LEVEL 103 MMOL/L (98-107); CREATININE FOR GFR 1.23 MG/DL (0.70-1.30); GLOMERULAR FILTRATION RATE > 60.0 (>42); GLUCOSE, FASTING 166 MG/DL (74-106); POTASSIUM SERUM 3.8 MMOL/L (3.5-5.1); SODIUM LEVEL 139 MMOL/L (136-145)
[2022-11-24 00:30] VITALS: BP 130/78; TEMP 98.6; O2SAT 95
[2022-11-24] MEDS: PIPERACILLIN/TAZOBACTAM SOD 3.375 GM in D5W MINI-BAG PLUS 50 ML IV SCH ×4 (03:31→22:22)
[2022-11-24 04:26] VITALS: O2SAT 96
[2022-11-24 06:00] VITALS: BP 133/76; TEMP 98.4; O2SAT 97
[2022-11-24 06:43] LABS: HEMATOCRIT 37.9 % (42.0-52.0); HEMOGLOBIN 12.2 g/dl (13.5-17.5); MEAN CORPUSCULAR HEMOGLOBIN 28.8 pg (27.0-33.0); MEAN CORPUSCULAR HGB CONC 32.2 g/dl (32.0-36.5); MEAN CORPUSCULAR VOLUME 89.4 fl (80.0-96.0); PLATELET COUNT, AUTOMATED 191 10^3/uL (150-450); RED BLOOD COUNT 4.24 10^6/uL (4.30-6.10); WHITE BLOOD COUNT 9.8 10^3/uL (4.0-10.0)
[2022-11-24 07:10] LABS: ALBUMIN 2.6 G/DL (3.2-5.2); ALKALINE PHOSPHATASE 88 U/L (46-116); ALT/SGPT 32 U/L (7.0-40); AST/SGOT 18 U/L (<34); BILIRUBIN,TOTAL 0.7 MG/DL (0.3-1.2); BLOOD UREA NITROGEN 16 MG/DL (9-23); CALCIUM LEVEL 7.9 MG/DL (8.3-10.6); CARBON DIOXIDE LEVEL 26 MMOL/L (20-31); CHLORIDE LEVEL 105 MMOL/L (98-107); CREATININE FOR GFR 1.03 MG/DL (0.70-1.30); GLOMERULAR FILTRATION RATE > 60.0 (>42); GLUCOSE, FASTING 129 MG/DL (74-106); POTASSIUM SERUM 3.6 MMOL/L (3.5-5.1); SODIUM LEVEL 141 MMOL/L (136-145); TOTAL PROTEIN 5.7 G/DL (5.7-8.2)
[2022-11-24] MEDS: SYMBICORT 160/4.5MCG INHALER 6GM INH SCH ×2 (07:52→19:58)
[2022-11-24] MEDS: LORATADINE 10 MG TAB PO SCH (10:25)
[2022-11-24] MEDS: ACETAMINOPHEN TAB 650MG DOSE (2X325MG) PO PRN ×2 (10:49→22:20)
[2022-11-24] MEDS: NS 1,000 ML IV SCH ×2 (12:22→16:40)
[2022-11-24 14:00] VITALS: BP 130/68; TEMP 97.9; O2SAT 95
[2022-11-24] MEDS ORDERED: POLYVINYL ALCOHOL OPHTH SOLN 15ML (LIQUITEARS) OU PRN (14:35)
[2022-11-24 20:31] VITALS: BP 141/80; TEMP 98.2; O2SAT 95
[2022-11-24] MEDS: PRAVASTATIN 20 MG TAB PO SCH (22:20)
[2022-11-24] MEDS: MONTELUKAST 10 MG TAB PO SCH (22:21)
[2022-11-24] MEDS: VENLAFAXINE **XR** 37.5 MG CAPSULE PO SCH (22:21)
[2022-11-24] MEDS: CelecoXIB (CeleBREX) 100 MG CAP PO SCH (22:22)
[2022-11-24] MEDS: LOSARTAN 50MG TABLET PO SCH (22:22)
[2022-11-25 00:19] VITALS: TEMP 99.1
[2022-11-25] MEDS: NS 1,000 ML IV SCH ×2 (00:34→13:12)
[2022-11-25] MEDS: PIPERACILLIN/TAZOBACTAM SOD 3.375 GM in D5W MINI-BAG PLUS 50 ML IV SCH ×4 (03:26→20:52)
[2022-11-25 05:50] VITALS: BP 139/78; TEMP 98.1; O2SAT 98
[2022-11-25 06:20] LABS: HEMATOCRIT 38.1 % (42.0-52.0); HEMOGLOBIN 12.5 g/dl (13.5-17.5); MEAN CORPUSCULAR HEMOGLOBIN 29.3 pg (27.0-33.0); MEAN CORPUSCULAR HGB CONC 32.8 g/dl (32.0-36.5); MEAN CORPUSCULAR VOLUME 89.2 fl (80.0-96.0); PLATELET COUNT, AUTOMATED 191 10^3/uL (150-450); RED BLOOD COUNT 4.27 10^6/uL (4.30-6.10)
[2022-11-25 06:47] LABS: ALBUMIN 2.5 G/DL (3.2-5.2); ALKALINE PHOSPHATASE 97 U/L (46-116); ALT/SGPT 88 U/L (7.0-40); AST/SGOT 60 U/L (<34); BILIRUBIN,TOTAL 0.5 MG/DL (0.3-1.2); BLOOD UREA NITROGEN 12 MG/DL (9-23); CALCIUM LEVEL 7.9 MG/DL (8.3-10.6); CARBON DIOXIDE LEVEL 26 MMOL/L (20-31); CHLORIDE LEVEL 107 MMOL/L (98-107); CREATININE FOR GFR 0.99 MG/DL (0.70-1.30); GLOMERULAR FILTRATION RATE > 60.0 (>42); GLUCOSE, FASTING 105 MG/DL (74-106); POTASSIUM SERUM 3.7 MMOL/L (3.5-5.1); SODIUM LEVEL 144 MMOL/L (136-145); TOTAL PROTEIN 5.7 G/DL (5.7-8.2)
[2022-11-25] MEDS: SYMBICORT 160/4.5MCG INHALER 6GM INH SCH ×2 (08:27→20:09)
[2022-11-25] MEDS: LORATADINE 10 MG TAB PO SCH (09:00)
[2022-11-25] MEDS ORDERED: LIDOCAINE 1% MDV 20ML VIAL As Ordered ONE (11:07)
[2022-11-25 14:00] VITALS: BP 154/77; TEMP 98.7; O2SAT 97
[2022-11-25 14:21] LABS: SOURCE, BODY FLUID CREATININE OTHER
[2022-11-25] MEDS: ACETAMINOPHEN TAB 650MG DOSE (2X325MG) PO PRN ×2 (15:36→20:48)
[2022-11-25] MEDS: VENLAFAXINE **XR** 37.5 MG CAPSULE PO SCH (20:48)
[2022-11-25 20:50] VITALS: BP 174/77; TEMP 100.3; O2SAT 94
[2022-11-25] MEDS: PRAVASTATIN 20 MG TAB PO SCH (20:50)
[2022-11-25] MEDS: LOSARTAN 50MG TABLET PO SCH (20:50)
[2022-11-25] MEDS: CelecoXIB (CeleBREX) 100 MG CAP PO SCH (20:51)
[2022-11-25] MEDS: MONTELUKAST 10 MG TAB PO SCH (20:51)
[2022-11-25 22:00] VITALS: TEMP 100
[2022-11-26] MEDS: NS 1,000 ML IV SCH ×2 (00:10→08:40)
[2022-11-26] MEDS: PIPERACILLIN/TAZOBACTAM SOD 3.375 GM in D5W MINI-BAG PLUS 50 ML IV SCH ×2 (02:54→09:03)
[2022-11-26 05:45] VITALS: BP 143/80; TEMP 98.3; O2SAT 95
[2022-11-26 05:50] LABS: HEMATOCRIT 40.4 % (42.0-52.0); HEMOGLOBIN 13.2 g/dl (13.5-17.5); MEAN CORPUSCULAR HEMOGLOBIN 29.3 pg (27.0-33.0); MEAN CORPUSCULAR HGB CONC 32.7 g/dl (32.0-36.5); MEAN CORPUSCULAR VOLUME 89.6 fl (80.0-96.0); PLATELET COUNT, AUTOMATED 229 10^3/uL (150-450); RED BLOOD COUNT 4.51 10^6/uL (4.30-6.10)
[2022-11-26 06:11] LABS: ALBUMIN 2.7 G/DL (3.2-5.2); ALKALINE PHOSPHATASE 107 U/L (46-116); ALT/SGPT 97 U/L (7.0-40); AST/SGOT 49 U/L (<34); BILIRUBIN,TOTAL 0.4 MG/DL (0.3-1.2); BLOOD UREA NITROGEN 12 MG/DL (9-23); CALCIUM LEVEL 8.1 MG/DL (8.3-10.6); CARBON DIOXIDE LEVEL 27 MMOL/L (20-31); CHLORIDE LEVEL 106 MMOL/L (98-107); CREATININE FOR GFR 0.99 MG/DL (0.70-1.30); GLOMERULAR FILTRATION RATE > 60.0 (>42); GLUCOSE, FASTING 143 MG/DL (74-106); POTASSIUM SERUM 3.8 MMOL/L (3.5-5.1); SODIUM LEVEL 142 MMOL/L (136-145); TOTAL PROTEIN 6.2 G/DL (5.7-8.2)
[2022-11-26] MEDS: SYMBICORT 160/4.5MCG INHALER 6GM INH SCH (08:50)
[2022-11-26] MEDS: LORATADINE 10 MG TAB PO SCH (09:03)
[2022-11-26] MEDS: ACETAMINOPHEN TAB 650MG DOSE (2X325MG) PO PRN (09:07)
[2022-11-26] MEDS ORDERED: PROBCAP14 PO (11:32)
[2022-11-26] MEDS ORDERED: METR-265 PO (11:32)
[2022-11-26] MEDS ORDERED: CEFU50TA PO (11:32)
[2022-11-26] MEDS ORDERED: ACET-716 PO (11:32)
[2022-11-27] MEDS ORDERED: ENOXAPARIN 40MG/0.4ML SYRINGE (J1650 PER 10MG) SC SCH (09:00)
== END 2022-11-26 14:09 | disposition home or self-care (01) | DRG 862 ==
LOC: M ED 18:33 → M ED INP 11-23 09:56 → M MSPAV 11-23 18:09
PROVIDERS: ADMIT Internal Medicine; ATTEND Internal Medicine Nephrology
PROC: 0T9B30Z Drainage of Bladder with Drainage Device, Percutaneous Approach (ICD-10-PCS; principal; 2022-11-26)
DX: T81.49XA Infection following a procedure, other surgical site, initial encounter (principal); A41.9 Sepsis, unspecified organism; J98.11 Atelectasis; N39.0 Urinary tract infection, site not specified; E78.5 Hyperlipidemia, unspecified; I10 Essential (primary) hypertension; L04.9 Acute lymphadenitis, unspecified; G47.33 Obstructive sleep apnea (adult) (pediatric); N40.0 Benign prostatic hyperplasia without lower urinary tract symptoms; J45.909 Unspecified asthma, uncomplicated; Z85.46 Personal history of malignant neoplasm of prostate; Z91.012 Allergy to eggs; Z79.899 Other long term (current) drug therapy; G62.9 Polyneuropathy, unspecified; Y84.8 Other medical procedures as the cause of abnormal reaction of the patient, or of later complication, without mention of misadventure at the time of the procedure

== ENCOUNTER 2023-02-06 01:14 | Inpatient (IN) | payer MEDICARE, BC, OTHER ==
[~2023-02-06] VITALS: Ht 185.4 cm; Wt 114.5 kg
[~2023-02-06 01:14] MED LIST changes: +ACET-716 PO; +CEFU50TA PO; +CELE0.09; -CELE1CAP9; +METR-265 PO; +PROBCAP14 PO
[2023-02-06] MEDS ORDERED: ONDANSETRON 4MG 2ML VIAL As Ordered ONE ×2 (01:58→10:24)
[2023-02-06] MEDS ORDERED: ONDANSETRON 4MG 2ML VIAL IV ONE (02:00)
[2023-02-06] MEDS ORDERED: NS 1,000 ML IV ONE (02:00)
[2023-02-06 02:39] LABS: HEMATOCRIT 47.4 % (42.0-52.0); HEMOGLOBIN 15.7 g/dl (13.5-17.5); MEAN CORPUSCULAR HEMOGLOBIN 29.2 pg (27.0-33.0); MEAN CORPUSCULAR HGB CONC 33.1 g/dl (32.0-36.5); MEAN CORPUSCULAR VOLUME 88.3 fl (80.0-96.0); PLATELET COUNT, AUTOMATED 178 10^3/uL (150-450); RED BLOOD COUNT 5.37 10^6/uL (4.30-6.10); WHITE BLOOD COUNT 4.3 10^3/uL (4.0-10.0)
[2023-02-06 03:01] LABS: LIPASE 33 U/L (12-53)
[2023-02-06 03:03] LABS: ALBUMIN 3.5 G/DL (3.2-5.2); ALKALINE PHOSPHATASE 85 U/L (46-116); ALT/SGPT 23 U/L (7.0-40); AST/SGOT 16 U/L (<34); BILIRUBIN,DIRECT 0.4 MG/DL (<0.4); BLOOD UREA NITROGEN 21 MG/DL (9-23); CALCIUM LEVEL 8.6 MG/DL (8.3-10.6); CARBON DIOXIDE LEVEL 25 MMOL/L (20-31); CHLORIDE LEVEL 105 MMOL/L (98-107); CREATININE FOR GFR 1.06 MG/DL (0.70-1.30); GLOMERULAR FILTRATION RATE > 60.0 (>42); GLUCOSE, FASTING 153 MG/DL (74-106); POTASSIUM SERUM 4.2 MMOL/L (3.5-5.1); SODIUM LEVEL 138 MMOL/L (136-145)
[2023-02-06 03:25] LABS: ATYPICAL LYMPH 4 % (0-5); LYMPHOCYTES 6 % (16-44); METAMYELOCYTES 1 % (0-0); MONOCYTES 1 % (0-5); NEUTROPHILS 78 % (28-66); PLATELET ESTIMATE NORMAL (NORMAL)
[2023-02-06] MEDS ORDERED: NS 3,270 ML in IV 1 EA IV ONE (04:20)
[2023-02-06] MEDS ORDERED: METOPROLOL 5 MG/5 ML VIAL IV PRN (04:30)
[2023-02-06] MEDS ORDERED: PIPERACILLIN/TAZOBACTAM SOD 4.5 GM in D5W MINI-BAG PLUS 50 ML IV ONE (04:30)
[2023-02-06] MEDS ORDERED: ISOVUE-370 76% 100ML VIAL As Ordered ONE (04:38)
[2023-02-06] MEDS ORDERED: ACETAMINOPHEN TAB 650MG DOSE (2X325MG) PO ONE (05:30)
[2023-02-06] MEDS: MORPHINE 4 MG/ML 1ML VIAL IV PRN ×2 (08:07→09:27)
[2023-02-06] MEDS ORDERED: MED REC IN PROGRESS XX SCH (08:30)
[2023-02-06] MEDS ORDERED: MED REC CURRENTLY UNOBTAINABLE XX SCH (09:15)
[2023-02-06] MEDS ORDERED: ROCURONIUM BROMIDE 50MG/5ML VIAL As Ordered ONE (09:16)
[2023-02-06] MEDS ORDERED: LIDOCAINE 2% 100MG/5ML SDV (FOR ANES.) As Ordered ONE (09:16)
[2023-02-06] MEDS ORDERED: propofoL 200 MG/20 ML VIAL As Ordered ONE (09:16)
[2023-02-06] MEDS ORDERED: MIDAZOLAM INJ 2MG/2ML VIAL As Ordered ONE (09:17)
[2023-02-06] MEDS ORDERED: fentaNYL 100 MCG/2 ML INJECTION As Ordered ONE (09:17)
[2023-02-06] MEDS ORDERED: SUGAMMADEX SODIUM 500 MG/5 ML VIAL (BRIDION) As Ordered ONE ×2 (10:24→10:26)
[2023-02-06] MEDS ORDERED: ACETAMINOPHEN 1000MG 100ML IV BAG As Ordered ONE (10:24)
[2023-02-06] MEDS ORDERED: PHENYLephrine 500MCG 5ML (100MCG/ML) SYRINGE As Ordered ONE (10:29)
[2023-02-06] MEDS ORDERED: fentaNYL 100 MCG/2 ML INJECTION IV PRN (11:20)
[2023-02-06] MEDS ORDERED: oxyCODONE 5MG TAB PO PRN (11:20)
[2023-02-06] MEDS ORDERED: LR 1,000 ML IV SCH (11:20)
[2023-02-06] MEDS ORDERED: HYDROMORPHONE HCL 0.5 MG/ 0.5 ML SYRINGE IV PRN (11:20)
[2023-02-06] MEDS ORDERED: ONDANSETRON 4MG 2ML VIAL IV PRN (11:20)
[2023-02-06 12:45] VITALS: BP 113/81; TEMP 97.9; O2SAT 97
[2023-02-06 13:15] VITALS: BP 111/56; TEMP 97; O2SAT 92
[2023-02-06] MEDS: NS 1,000 ML IV SCH ×2 (13:32→21:01)
[2023-02-06] MEDS: PIPERACILLIN/TAZOBACTAM SOD 3.375 GM in D5W MINI-BAG PLUS 50 ML IV SCH ×3 (13:32→23:19)
[2023-02-06] MEDS ORDERED: MAGN500T6 PO (15:03)
[2023-02-06] MEDS ORDERED: IBUP200T46 PO (15:03)
[2023-02-06] MEDS ORDERED: HOME MED LIST COMPLETE! XX SCH (15:05)
[2023-02-06] MEDS ORDERED: TURM1TAB PO (15:16)
[2023-02-06] MEDS ORDERED: CIAL20TA PO (15:16)
[2023-02-06 16:20] VITALS: BP 125/70; TEMP 96.8; O2SAT 97
[2023-02-06] MEDS ORDERED: IPRATROPIUM 0.5MG/ALBUTEROL 2.5MG INH SOL UD 3ML (DUONEB) NEB PRN (16:45)
[2023-02-06 20:20] VITALS: BP 138/75; TEMP 98.1; O2SAT 94
[2023-02-06] MEDS: SYMBICORT 160/4.5MCG INHALER 6GM INH SCH (20:35)
[2023-02-06] MEDS: METOPROLOL TART 25 MG TABLET PO SCH (21:00)
[2023-02-06] MEDS: SENOKOT S TAB PO SCH (21:00)
[2023-02-06] MEDS: PRAVASTATIN 20 MG TAB PO SCH (21:00)
[2023-02-06] MEDS: VENLAFAXINE **XR** 37.5 MG CAPSULE PO SCH (21:00)
[2023-02-06] MEDS: NORCO, ANEXSIA 5/325MG TABLET (HYDROcodone/ACETAMINOPHEN) PO PRN (23:19)
[2023-02-07] VITALS (13 sets, daily range): BP systolic 122–154; BP diastolic 76–97; TEMP 97.2–98.8; O2SAT 84–93
[2023-02-07] MEDS: NS 1,000 ML IV SCH ×3 (03:31→17:50)
[2023-02-07] MEDS: PIPERACILLIN/TAZOBACTAM SOD 3.375 GM in D5W MINI-BAG PLUS 50 ML IV SCH ×4 (04:50→23:30)
[2023-02-07 06:24] LABS: HEMATOCRIT 41.7 % (42.0-52.0); MEAN CORPUSCULAR HGB CONC 31.9 g/dl (32.0-36.5); PLATELET COUNT, AUTOMATED 196 10^3/uL (150-450); RED BLOOD COUNT 4.58 10^6/uL (4.30-6.10); WHITE BLOOD COUNT 9.9 10^3/uL (4.0-10.0)
[2023-02-07 06:28] LABS: HEMOGLOBIN 13.3 g/dl (13.5-17.5)
[2023-02-07 06:49] LABS: THYROID STIMULATING HORMONE 1.391 uIU/ML (0.55-4.78)
[2023-02-07] MEDS: SYMBICORT 160/4.5MCG INHALER 6GM INH SCH ×2 (07:44→20:10)
[2023-02-07 07:54] LABS: BLOOD UREA NITROGEN 28 MG/DL (9-23); CARBON DIOXIDE LEVEL 26 MMOL/L (20-31); CHLORIDE LEVEL 110 MMOL/L (98-107); CREATININE FOR GFR 1.21 MG/DL (0.70-1.30); GLOMERULAR FILTRATION RATE > 60.0 (>42); GLUCOSE, FASTING 136 MG/DL (74-106); MAGNESIUM LEVEL 1.9 MG/DL (1.8-2.4); POTASSIUM SERUM 4.3 MMOL/L (3.5-5.1); SODIUM LEVEL 144 MMOL/L (136-145)
[2023-02-07] MEDS ORDERED: NS 500 ML IV ONE (08:10)
[2023-02-07] MEDS: KETOROLAC 30 MG/ML 1ML VIAL IV PRN (08:26)
[2023-02-07] MEDS: ONDANSETRON 4MG 2ML VIAL IV PRN (08:27)
[2023-02-07] MEDS: SENOKOT S TAB PO SCH ×2 (08:28→20:16)
[2023-02-07] MEDS: METOPROLOL TART 25 MG TABLET PO SCH ×4 (08:39→23:30)
[2023-02-07] MEDS ORDERED: ENOXAPARIN 40MG/0.4ML SYRINGE (J1650 PER 10MG) SC SCH (09:00)
[2023-02-07] MEDS ORDERED: ENOXAPARIN 100MG/1ML SYRINGE (J1650 PER 10MG) SC SCH (13:00)
[2023-02-07] MEDS ORDERED: ENOXAPARIN 60MG/0.6ML SYRINGE (J1650 PER 10MG) SC ONE (13:00)
[2023-02-07] MEDS: PRAVASTATIN 20 MG TAB PO SCH (20:16)
[2023-02-07] MEDS: VENLAFAXINE **XR** 37.5 MG CAPSULE PO SCH (20:16)
[2023-02-07] MEDS: ENOXAPARIN 100MG/1ML SYRINGE (J1650 PER 10MG) SC SCH (20:17)
[2023-02-07] MEDS: NORCO, ANEXSIA 5/325MG TABLET (HYDROcodone/ACETAMINOPHEN) PO PRN (20:17)
[2023-02-08] MEDS: NS 1,000 ML IV SCH ×2 (04:26→12:31)
[2023-02-08] MEDS: PIPERACILLIN/TAZOBACTAM SOD 3.375 GM in D5W MINI-BAG PLUS 50 ML IV SCH ×4 (05:13→23:17)
[2023-02-08] MEDS: METOPROLOL TART 25 MG TABLET PO SCH ×4 (05:13→23:18)
[2023-02-08] MEDS: NORCO, ANEXSIA 5/325MG TABLET (HYDROcodone/ACETAMINOPHEN) PO PRN ×2 (05:15→17:49)
[2023-02-08 05:19] VITALS: BP 149/97; TEMP 97.7; O2SAT 92
[2023-02-08 06:47] LABS: HEMATOCRIT 44.1 % (42.0-52.0); MEAN CORPUSCULAR HEMOGLOBIN 29.2 pg (27.0-33.0); MEAN CORPUSCULAR HGB CONC 31.7 g/dl (32.0-36.5); MEAN CORPUSCULAR VOLUME 91.9 fl (80.0-96.0); PLATELET COUNT, AUTOMATED 207 10^3/uL (150-450); WHITE BLOOD COUNT 9.3 10^3/uL (4.0-10.0)
[2023-02-08 07:17] LABS: BLOOD UREA NITROGEN 30 MG/DL (9-23); CALCIUM LEVEL 7.9 MG/DL (8.3-10.6); CARBON DIOXIDE LEVEL 24 MMOL/L (20-31); CHLORIDE LEVEL 109 MMOL/L (98-107); CREATININE FOR GFR 1.11 MG/DL (0.70-1.30); GLOMERULAR FILTRATION RATE > 60.0 (>42); GLUCOSE, FASTING 125 MG/DL (74-106); MAGNESIUM LEVEL 1.9 MG/DL (1.8-2.4); POTASSIUM SERUM 4.1 MMOL/L (3.5-5.1); SODIUM LEVEL 143 MMOL/L (136-145)
[2023-02-08] MEDS: SYMBICORT 160/4.5MCG INHALER 6GM INH SCH ×2 (07:40→19:13)
[2023-02-08] MEDS: SENOKOT S TAB PO SCH ×2 (09:00→21:00)
[2023-02-08] MEDS: ENOXAPARIN 100MG/1ML SYRINGE (J1650 PER 10MG) SC SCH ×2 (09:13→21:34)
[2023-02-08 12:29] VITALS: BP 152/88; TEMP 97.7; O2SAT 95
[2023-02-08 19:44] VITALS: BP 159/81; TEMP 97.7; O2SAT 90
[2023-02-08] MEDS: PRAVASTATIN 20 MG TAB PO SCH (21:34)
[2023-02-08] MEDS: VENLAFAXINE **XR** 37.5 MG CAPSULE PO SCH (21:34)
[2023-02-08] MEDS: KETOROLAC 30 MG/ML 1ML VIAL IV PRN (21:55)
[2023-02-09] MEDS: NS 1,000 ML IV SCH ×2 (01:31→08:44)
[2023-02-09 04:22] VITALS: BP 158/96; TEMP 99.1; O2SAT 90
[2023-02-09] MEDS: PIPERACILLIN/TAZOBACTAM SOD 3.375 GM in D5W MINI-BAG PLUS 50 ML IV SCH ×4 (05:09→22:40)
[2023-02-09] MEDS: METOPROLOL TART 25 MG TABLET PO SCH ×3 (06:11→17:12)
[2023-02-09 07:16] LABS: HEMOGLOBIN 13.6 g/dl (13.5-17.5); MEAN CORPUSCULAR HEMOGLOBIN 28.6 pg (27.0-33.0); MEAN CORPUSCULAR HGB CONC 31.6 g/dl (32.0-36.5); MEAN CORPUSCULAR VOLUME 90.5 fl (80.0-96.0); PLATELET COUNT, AUTOMATED 217 10^3/uL (150-450); RED BLOOD COUNT 4.75 10^6/uL (4.30-6.10); WHITE BLOOD COUNT 8.5 10^3/uL (4.0-10.0)
[2023-02-09 07:19] VITALS: O2SAT 97
[2023-02-09] MEDS: SYMBICORT 160/4.5MCG INHALER 6GM INH SCH ×2 (07:19→19:16)
[2023-02-09 07:43] LABS: BLOOD UREA NITROGEN 30 MG/DL (9-23); CALCIUM LEVEL 7.6 MG/DL (8.3-10.6); CARBON DIOXIDE LEVEL 24 MMOL/L (20-31); CHLORIDE LEVEL 108 MMOL/L (98-107); CREATININE FOR GFR 1.02 MG/DL (0.70-1.30); GLOMERULAR FILTRATION RATE > 60.0 (>42); GLUCOSE, FASTING 101 MG/DL (74-106); POTASSIUM SERUM 3.8 MMOL/L (3.5-5.1); SODIUM LEVEL 142 MMOL/L (136-145)
[2023-02-09] MEDS: ENOXAPARIN 100MG/1ML SYRINGE (J1650 PER 10MG) SC SCH ×2 (08:44→21:06)
[2023-02-09] MEDS: SENOKOT S TAB PO SCH ×2 (08:46→21:06)
[2023-02-09] MEDS: NORCO, ANEXSIA 5/325MG TABLET (HYDROcodone/ACETAMINOPHEN) PO PRN ×2 (11:44→17:53)
[2023-02-09 14:00] VITALS: BP 152/74; TEMP 98.1; O2SAT 90
[2023-02-09 19:19] VITALS: O2SAT 94
[2023-02-09 19:31] VITALS: BP 156/83; TEMP 98.4; O2SAT 93
[2023-02-09] MEDS: PRAVASTATIN 20 MG TAB PO SCH (21:06)
[2023-02-09] MEDS: VENLAFAXINE **XR** 37.5 MG CAPSULE PO SCH (21:06)
[2023-02-10] VITALS (25 sets, daily range): BP systolic 129–180; BP diastolic 69–110; TEMP 96.3–98.6; O2SAT 91–93
[2023-02-10] MEDS: METOPROLOL TART 25 MG TABLET PO SCH ×2 (00:22→05:14)
[2023-02-10] MEDS: NORCO, ANEXSIA 5/325MG TABLET (HYDROcodone/ACETAMINOPHEN) PO PRN ×2 (00:25→18:40)
[2023-02-10] MEDS: NS 1,000 ML IV SCH ×3 (04:35→18:36)
[2023-02-10] MEDS: PIPERACILLIN/TAZOBACTAM SOD 3.375 GM in D5W MINI-BAG PLUS 50 ML IV SCH ×3 (05:13→18:20)
[2023-02-10 06:08] LABS: HEMOGLOBIN 14.1 g/dl (13.5-17.5); MEAN CORPUSCULAR HEMOGLOBIN 29.3 pg (27.0-33.0); MEAN CORPUSCULAR HGB CONC 32.8 g/dl (32.0-36.5); MEAN CORPUSCULAR VOLUME 89.4 fl (80.0-96.0); PLATELET COUNT, AUTOMATED 253 10^3/uL (150-450); RED BLOOD COUNT 4.81 10^6/uL (4.30-6.10)
[2023-02-10 06:15] LABS: BLOOD UREA NITROGEN 25 MG/DL (9-23); CALCIUM LEVEL 7.8 MG/DL (8.3-10.6); CARBON DIOXIDE LEVEL 26 MMOL/L (20-31); CHLORIDE LEVEL 109 MMOL/L (98-107); CREATININE FOR GFR 0.91 MG/DL (0.70-1.30); GLOMERULAR FILTRATION RATE > 60.0 (>42); GLUCOSE, FASTING 89 MG/DL (74-106); MAGNESIUM LEVEL 2.1 MG/DL (1.8-2.4); POTASSIUM SERUM 4.1 MMOL/L (3.5-5.1); SODIUM LEVEL 144 MMOL/L (136-145)
[2023-02-10] MEDS: SYMBICORT 160/4.5MCG INHALER 6GM INH SCH ×2 (07:14→20:06)
[2023-02-10] MEDS ORDERED: DIGOXIN INJ 0.5 MG/2 ML AMP IV STA (08:52)
[2023-02-10] MEDS: ENOXAPARIN 100MG/1ML SYRINGE (J1650 PER 10MG) SC SCH ×2 (09:21→21:00)
[2023-02-10] MEDS: SENOKOT S TAB PO SCH ×2 (09:21→21:01)
[2023-02-10] MEDS ORDERED: dilTIAZem 30 MG TAB PO ONE (10:00)
[2023-02-10] MEDS: KETOROLAC 30 MG/ML 1ML VIAL IV PRN (10:54)
[2023-02-10] MEDS ORDERED: dilTIAZem 30 MG TAB PO SCH ×2 (12:00→18:00)
[2023-02-10] MEDS: diltiaZEM 125 MG in NS 100 ML IV SCH (12:56)
[2023-02-10] MEDS: PRAVASTATIN 20 MG TAB PO SCH (21:01)
[2023-02-10] MEDS: VENLAFAXINE **XR** 37.5 MG CAPSULE PO SCH (22:29)
[2023-02-10] MEDS: D5W/0.45% SODIUM CHLORIDE 1,000 ML IV SCH (22:31)
[2023-02-11] VITALS (23 sets, daily range): BP systolic 126–179; BP diastolic 82–98; TEMP 96.2–98.1; O2SAT 91–96
[2023-02-11] MEDS: PIPERACILLIN/TAZOBACTAM SOD 3.375 GM in D5W MINI-BAG PLUS 50 ML IV SCH ×5 (00:04→23:50)
[2023-02-11] MEDS: NORCO, ANEXSIA 5/325MG TABLET (HYDROcodone/ACETAMINOPHEN) PO PRN ×3 (00:45→21:12)
[2023-02-11] MEDS: KETOROLAC 30 MG/ML 1ML VIAL IV PRN (04:54)
[2023-02-11 05:01] LABS: HEMATOCRIT 42.8 % (42.0-52.0); HEMOGLOBIN 14.1 g/dl (13.5-17.5); MEAN CORPUSCULAR HGB CONC 32.9 g/dl (32.0-36.5); MEAN CORPUSCULAR VOLUME 88.1 fl (80.0-96.0); PLATELET COUNT, AUTOMATED 299 10^3/uL (150-450); RED BLOOD COUNT 4.86 10^6/uL (4.30-6.10); WHITE BLOOD COUNT 8.4 10^3/uL (4.0-10.0)
[2023-02-11 05:26] LABS: BLOOD UREA NITROGEN 22 MG/DL (9-23); CALCIUM LEVEL 7.9 MG/DL (8.3-10.6); CARBON DIOXIDE LEVEL 24 MMOL/L (20-31); CHLORIDE LEVEL 106 MMOL/L (98-107); CREATININE FOR GFR 0.88 MG/DL (0.70-1.30); GLOMERULAR FILTRATION RATE > 60.0 (>42); GLUCOSE, FASTING 103 MG/DL (74-106); POTASSIUM SERUM 3.5 MMOL/L (3.5-5.1); SODIUM LEVEL 139 MMOL/L (136-145)
[2023-02-11] MEDS: SYMBICORT 160/4.5MCG INHALER 6GM INH SCH ×2 (07:26→19:22)
[2023-02-11] MEDS: ENOXAPARIN 100MG/1ML SYRINGE (J1650 PER 10MG) SC SCH ×2 (09:24→21:13)
[2023-02-11] MEDS: diltiaZEM 125 MG in NS 100 ML IV SCH (09:25)
[2023-02-11] MEDS: SENOKOT S TAB PO SCH ×2 (09:25→21:13)
[2023-02-11] MEDS: D5W/0.45% SODIUM CHLORIDE 1,000 ML IV SCH ×2 (11:19→23:50)
[2023-02-11] MEDS ORDERED: METOPROLOL TART 50 MG TAB PO ONE (14:50)
[2023-02-11] MEDS: PRAVASTATIN 20 MG TAB PO SCH (21:09)
[2023-02-11] MEDS: VENLAFAXINE **XR** 37.5 MG CAPSULE PO SCH (21:09)
[2023-02-11] MEDS: METOPROLOL TART 50 MG TAB PO SCH (21:13)
[2023-02-11] MEDS: ONDANSETRON 4MG 2ML VIAL IV PRN (21:16)
[2023-02-11] MEDS: PANTOPRAZOLE 40MG TAB (PROTONIX) PO SCH (21:16)
[2023-02-12] VITALS (31 sets, daily range): BP systolic 114–160; BP diastolic 70–106; TEMP 96.2–98.2; O2SAT 87–98
[2023-02-12] MEDS: NORCO, ANEXSIA 5/325MG TABLET (HYDROcodone/ACETAMINOPHEN) PO PRN (03:16)
[2023-02-12] MEDS: ONDANSETRON 4MG 2ML VIAL IV PRN (03:50)
[2023-02-12] MEDS ORDERED: METOPROLOL 5 MG/5 ML VIAL IV ONE (04:00)
[2023-02-12] MEDS ORDERED: MORPHINE 2 MG/ML 1ML VIAL IV ONE (04:00)
[2023-02-12] MEDS: PIPERACILLIN/TAZOBACTAM SOD 3.375 GM in D5W MINI-BAG PLUS 50 ML IV SCH ×4 (04:02→22:15)
[2023-02-12 05:18] LABS: HEMATOCRIT 47.1 % (42.0-52.0); HEMOGLOBIN 15.3 g/dl (13.5-17.5); MEAN CORPUSCULAR HEMOGLOBIN 28.6 pg (27.0-33.0); MEAN CORPUSCULAR HGB CONC 32.5 g/dl (32.0-36.5); PLATELET COUNT, AUTOMATED 333 10^3/uL (150-450); RED BLOOD COUNT 5.35 10^6/uL (4.30-6.10); WHITE BLOOD COUNT 9.3 10^3/uL (4.0-10.0)
[2023-02-12 05:36] LABS: ALBUMIN 2.3 G/DL (3.2-5.2); ALKALINE PHOSPHATASE 100 U/L (46-116); ALT/SGPT 29 U/L (7.0-40); AST/SGOT 23 U/L (<34); BILIRUBIN,TOTAL 0.7 MG/DL (0.3-1.2); BLOOD UREA NITROGEN 16 MG/DL (9-23); CALCIUM LEVEL 7.9 MG/DL (8.3-10.6); CARBON DIOXIDE LEVEL 26 MMOL/L (20-31); CHLORIDE LEVEL 107 MMOL/L (98-107); CREATININE FOR GFR 0.86 MG/DL (0.70-1.30); GLOMERULAR FILTRATION RATE > 60.0 (>42); GLUCOSE, FASTING 142 MG/DL (74-106); POTASSIUM SERUM 3.7 MMOL/L (3.5-5.1); SODIUM LEVEL 142 MMOL/L (136-145); TOTAL PROTEIN 6.1 G/DL (5.7-8.2)
[2023-02-12] MEDS: SYMBICORT 160/4.5MCG INHALER 6GM INH SCH ×2 (08:46→20:50)
[2023-02-12] MEDS: METOCLOPRAMIDE INJ 10MG/2ML VIAL IV SCH ×3 (10:03→22:17)
[2023-02-12] MEDS: KETOROLAC 30 MG/ML 1ML VIAL IV SCH ×3 (10:04→22:17)
[2023-02-12] MEDS: SENOKOT S TAB PO SCH ×2 (10:04→22:16)
[2023-02-12] MEDS: MIRALAX *UNIT DOSE* 17GM PACKET PO SCH ×2 (10:04→22:16)
[2023-02-12] MEDS: METOPROLOL TART 50 MG TAB PO SCH ×2 (10:04→22:16)
[2023-02-12] MEDS: ENOXAPARIN 100MG/1ML SYRINGE (J1650 PER 10MG) SC SCH ×2 (10:05→22:16)
[2023-02-12] MEDS: D5W/0.45% SODIUM CHLORIDE 1,000 ML IV SCH (13:53)
[2023-02-12] MEDS: PANTOPRAZOLE 40MG TAB (PROTONIX) PO SCH (22:15)
[2023-02-12] MEDS: VENLAFAXINE **XR** 37.5 MG CAPSULE PO SCH (22:16)
[2023-02-12] MEDS: PRAVASTATIN 20 MG TAB PO SCH (22:17)
[2023-02-13] VITALS (19 sets, daily range): BP systolic 127–164; BP diastolic 56–97; TEMP 96.3–98.5; O2SAT 90–98
[2023-02-13] MEDS: D5W/0.45% SODIUM CHLORIDE 1,000 ML IV SCH ×3 (01:07→21:25)
[2023-02-13] MEDS ORDERED: MAALOX 30 ML SUSP *UDC PO ONE (02:00)
[2023-02-13] MEDS: KETOROLAC 30 MG/ML 1ML VIAL IV SCH (03:04)
[2023-02-13] MEDS: METOCLOPRAMIDE INJ 10MG/2ML VIAL IV SCH ×4 (03:05→21:25)
[2023-02-13] MEDS: PIPERACILLIN/TAZOBACTAM SOD 3.375 GM in D5W MINI-BAG PLUS 50 ML IV SCH ×4 (05:24→23:44)
[2023-02-13 06:13] LABS: HEMATOCRIT 42.6 % (42.0-52.0); HEMOGLOBIN 13.6 g/dl (13.5-17.5); MEAN CORPUSCULAR HEMOGLOBIN 28.9 pg (27.0-33.0); MEAN CORPUSCULAR HGB CONC 31.9 g/dl (32.0-36.5); MEAN CORPUSCULAR VOLUME 90.4 fl (80.0-96.0); PLATELET COUNT, AUTOMATED 347 10^3/uL (150-450); RED BLOOD COUNT 4.71 10^6/uL (4.30-6.10); WHITE BLOOD COUNT 9.9 10^3/uL (4.0-10.0)
[2023-02-13 06:31] LABS: ALBUMIN 2.1 G/DL (3.2-5.2); ALKALINE PHOSPHATASE 92 U/L (46-116); ALT/SGPT 31 U/L (7.0-40); AST/SGOT 32 U/L (<34); BILIRUBIN,TOTAL 0.5 MG/DL (0.3-1.2); BLOOD UREA NITROGEN 18 MG/DL (9-23); CALCIUM LEVEL 7.9 MG/DL (8.3-10.6); CARBON DIOXIDE LEVEL 32 MMOL/L (20-31); CHLORIDE LEVEL 105 MMOL/L (98-107); CREATININE FOR GFR 1.14 MG/DL (0.70-1.30); GLOMERULAR FILTRATION RATE > 60.0 (>42); GLUCOSE, FASTING 120 MG/DL (74-106); POTASSIUM SERUM 3.7 MMOL/L (3.5-5.1); SODIUM LEVEL 142 MMOL/L (136-145); TOTAL PROTEIN 5.7 G/DL (5.7-8.2)
[2023-02-13] MEDS: SYMBICORT 160/4.5MCG INHALER 6GM INH SCH ×2 (07:34→21:28)
[2023-02-13] MEDS: ENOXAPARIN 100MG/1ML SYRINGE (J1650 PER 10MG) SC SCH ×2 (08:51→21:24)
[2023-02-13] MEDS: MIRALAX *UNIT DOSE* 17GM PACKET PO SCH ×2 (08:51→21:00)
[2023-02-13] MEDS: METOPROLOL TART 50 MG TAB PO SCH ×2 (08:51→21:25)
[2023-02-13] MEDS: SENOKOT S TAB PO SCH ×2 (08:51→21:00)
[2023-02-13] MEDS: NORCO, ANEXSIA 5/325MG TABLET (HYDROcodone/ACETAMINOPHEN) PO PRN ×4 (09:46→22:02)
[2023-02-13] MEDS ORDERED: SIMETHICONE 80MG CHEW TAB PO PRN (21:00)
[2023-02-13] MEDS: PRAVASTATIN 20 MG TAB PO SCH (21:24)
[2023-02-13] MEDS: PANTOPRAZOLE 40MG TAB (PROTONIX) PO SCH (21:24)
[2023-02-13] MEDS: VENLAFAXINE **XR** 37.5 MG CAPSULE PO SCH (21:24)
[2023-02-14] VITALS (18 sets, daily range): BP systolic 106–162; BP diastolic 67–97; TEMP 96.8–99.1; O2SAT 86–98
[2023-02-14] MEDS ORDERED: ACETAMINOPHEN *IV* 1,000 MG in IV 1 EA IV ONE (01:00)
[2023-02-14] MEDS: METOCLOPRAMIDE INJ 10MG/2ML VIAL IV SCH ×4 (04:36→20:04)
[2023-02-14] MEDS: NORCO, ANEXSIA 5/325MG TABLET (HYDROcodone/ACETAMINOPHEN) PO PRN (04:37)
[2023-02-14] MEDS: PIPERACILLIN/TAZOBACTAM SOD 3.375 GM in D5W MINI-BAG PLUS 50 ML IV SCH ×4 (04:37→22:18)
[2023-02-14] MEDS: SYMBICORT 160/4.5MCG INHALER 6GM INH SCH ×2 (08:04→20:00)
[2023-02-14 08:15] LABS: HEMATOCRIT 36.9 % (42.0-52.0); HEMOGLOBIN 11.8 g/dl (13.5-17.5); MEAN CORPUSCULAR HEMOGLOBIN 28.4 pg (27.0-33.0); MEAN CORPUSCULAR VOLUME 88.7 fl (80.0-96.0); PLATELET COUNT, AUTOMATED 402 10^3/uL (150-450); RED BLOOD COUNT 4.16 10^6/uL (4.30-6.10)
[2023-02-14] MEDS ORDERED: MORPHINE 2 MG/ML 1ML VIAL IV PRN (08:35)
[2023-02-14] MEDS ORDERED: VANCOMYCIN HCL 750 MG, VIAL MATE ADAPTER 1 EACH in D5W 250 ML IV SCH (08:35)
[2023-02-14 08:41] LABS: ALKALINE PHOSPHATASE 87 U/L (46-116); ALT/SGPT 29 U/L (7.0-40); AST/SGOT 17 U/L (<34); BILIRUBIN,TOTAL 0.7 MG/DL (0.3-1.2); BLOOD UREA NITROGEN 17 MG/DL (9-23); CALCIUM LEVEL 7.8 MG/DL (8.3-10.6); CARBON DIOXIDE LEVEL 27 MMOL/L (20-31); CHLORIDE LEVEL 107 MMOL/L (98-107); CREATININE FOR GFR 0.95 MG/DL (0.70-1.30); GLOMERULAR FILTRATION RATE > 60.0 (>42); GLUCOSE, FASTING 189 MG/DL (74-106); POTASSIUM SERUM 3.8 MMOL/L (3.5-5.1); SODIUM LEVEL 141 MMOL/L (136-145); TOTAL PROTEIN 5.4 G/DL (5.7-8.2)
[2023-02-14] MEDS: MORPHINE 4 MG/ML 1ML VIAL IV PRN ×4 (08:52→23:02)
[2023-02-14] MEDS: GASTROGRAFIN SOLUTION 30ML PO SCH ×2 (08:55→09:33)
[2023-02-14] MEDS: METOPROLOL TART 50 MG TAB PO SCH (08:55)
[2023-02-14] MEDS: SENOKOT S TAB PO SCH (09:00)
[2023-02-14] MEDS ORDERED: APIXABAN 5 MG TAB (ELIQUIS) PO SCH (09:00)
[2023-02-14] MEDS ORDERED: ISOVUE-370 76% 100ML VIAL As Ordered ONE ×2 (10:31→17:50)
[2023-02-14] MEDS: VANCOMYCIN HCL 1,000 MG, VIAL MATE ADAPTER 1 EACH in D5W 250 ML IV SCH ×2 (11:05→12:24)
[2023-02-14] MEDS: MIRALAX *UNIT DOSE* 17GM PACKET PO SCH (11:25)
[2023-02-14] MEDS: PANTOPRAZOLE 40MG VIAL IV SCH (13:10)
[2023-02-14] MEDS ORDERED: FLUCONAZOLE 400 MG in IV 1 EA IV SCH (15:00)
[2023-02-14] MEDS: diltiaZEM 125 MG in NS 100 ML IV SCH (15:15)
[2023-02-14] MEDS ORDERED: LIDOCAINE 1% MDV 20ML VIAL As Ordered ONE (17:20)
[2023-02-14] MEDS ORDERED: FLUCONAZOLE 400 MG in IV 1 EA IV ONE (18:00)
[2023-02-14 18:10] LABS: HEMATOCRIT 32.1 % (42.0-52.0); HEMOGLOBIN 10.6 g/dl (13.5-17.5); MEAN CORPUSCULAR HEMOGLOBIN 29.6 pg (27.0-33.0); MEAN CORPUSCULAR VOLUME 89.7 fl (80.0-96.0); PLATELET COUNT, AUTOMATED 391 10^3/uL (150-450); RED BLOOD COUNT 3.58 10^6/uL (4.30-6.10); WHITE BLOOD COUNT 25.9 10^3/uL (4.0-10.0)
[2023-02-14] MEDS ORDERED: VANCOMYCIN HCL 1,000 MG, VIAL MATE ADAPTER 1 EACH in D5W 250 ML IV SCH (20:00)
[2023-02-14] MEDS: LR 1,000 ML IV SCH (20:03)
[2023-02-14 21:11] LABS: INR 1.48; PROTHROMBIN TIME 17.6 SECONDS (12.5-14.5)
[2023-02-14 23:50] LABS: HEMATOCRIT 28.9 % (42.0-52.0); HEMOGLOBIN 9.5 g/dl (13.5-17.5); MEAN CORPUSCULAR HEMOGLOBIN 29.6 pg (27.0-33.0); MEAN CORPUSCULAR HGB CONC 32.9 g/dl (32.0-36.5); PLATELET COUNT, AUTOMATED 343 10^3/uL (150-450); RED BLOOD COUNT 3.21 10^6/uL (4.30-6.10)
[2023-02-14 23:56] LABS: WHITE BLOOD COUNT 32.1 10^3/uL (4.0-10.0)
[2023-02-15] VITALS (16 sets, daily range): BP systolic 88–135; BP diastolic 40–84; TEMP 97.5–99.7; O2SAT 89–93
[2023-02-15] MEDS: PANTOPRAZOLE 40MG VIAL IV SCH ×2 (00:13→12:44)
[2023-02-15] MEDS: MORPHINE 4 MG/ML 1ML VIAL IV PRN ×3 (01:12→13:39)
[2023-02-15] MEDS: diltiaZEM 125 MG in NS 100 ML IV SCH ×2 (01:42→15:27)
[2023-02-15] MEDS: PIPERACILLIN/TAZOBACTAM SOD 3.375 GM in D5W MINI-BAG PLUS 50 ML IV SCH ×4 (04:06→23:14)
[2023-02-15] MEDS: METOCLOPRAMIDE INJ 10MG/2ML VIAL IV SCH ×4 (04:06→20:11)
[2023-02-15 05:43] LABS: HEMATOCRIT 26.4 % (42.0-52.0); HEMOGLOBIN 8.7 g/dl (13.5-17.5); MEAN CORPUSCULAR HEMOGLOBIN 29.2 pg (27.0-33.0); MEAN CORPUSCULAR VOLUME 88.6 fl (80.0-96.0); PLATELET COUNT, AUTOMATED 384 10^3/uL (150-450); RED BLOOD COUNT 2.98 10^6/uL (4.30-6.10)
[2023-02-15 06:02] LABS: WHITE BLOOD COUNT 39.9 10^3/uL (4.0-10.0)
[2023-02-15] MEDS ORDERED: LIDOCAINE 2% 100MG/5ML SDV (FOR ANES.) As Ordered ONE (07:18)
[2023-02-15] MEDS ORDERED: ROCURONIUM BROMIDE 50MG/5ML VIAL As Ordered ONE ×2 (07:18→08:43)
[2023-02-15] MEDS ORDERED: propofoL 200 MG/20 ML VIAL As Ordered ONE (07:18)
[2023-02-15] MEDS ORDERED: fentaNYL 250 MCG/5 ML INJECTION As Ordered ONE (07:19)
[2023-02-15] MEDS ORDERED: MIDAZOLAM INJ 2MG/2ML VIAL As Ordered ONE (07:19)
[2023-02-15 07:32] LABS: VANCOMYCIN LEVEL TROUGH 23.8 UG/ML (10.0-20.0)
[2023-02-15 07:34] LABS: ALBUMIN 1.9 G/DL (3.2-5.2); BILIRUBIN,TOTAL 0.7 MG/DL (0.3-1.2); CALCIUM LEVEL 7.4 MG/DL (8.3-10.6); CREATININE FOR GFR 2.56 MG/DL (0.70-1.30); GLOMERULAR FILTRATION RATE 26.6 (>42); POTASSIUM SERUM 4.1 MMOL/L (3.5-5.1); TOTAL PROTEIN 5.2 G/DL (5.7-8.2)
[2023-02-15] MEDS ORDERED: ETOMIDATE INJ 20MG/10ML VIAL As Ordered ONE ×2 (07:35→08:58)
[2023-02-15] MEDS ORDERED: VASOPRESSIN INJ 20UNITS/ML 1ML VIAL As Ordered ONE (07:52)
[2023-02-15] MEDS ORDERED: SUCCINYLCHOLINE 100MG/5ML SYRINGE As Ordered ONE (08:44)
[2023-02-15] MEDS ORDERED: CALCIUM CHLORIDE 10% 1 GM/10 ML SYR As Ordered ONE (08:44)
[2023-02-15] MEDS ORDERED: PHENYLephrine 500MCG 5ML (100MCG/ML) SYRINGE As Ordered ONE (08:46)
[2023-02-15] MEDS ORDERED: fentaNYL 100 MCG/2 ML INJECTION As Ordered ONE (08:58)
[2023-02-15] MEDS ORDERED: ENOXAPARIN 100MG/1ML SYRINGE (J1650 PER 10MG) SC SCH (09:00)
[2023-02-15] MEDS ORDERED: HYDROmorphone HCL 2MG/ML 1ML VIAL As Ordered ONE (09:28)
[2023-02-15] MEDS ORDERED: SUGAMMADEX SODIUM 500 MG/5 ML VIAL (BRIDION) As Ordered ONE (09:35)
[2023-02-15] MEDS ORDERED: ONDANSETRON 4MG 2ML VIAL As Ordered ONE (09:36)
[2023-02-15 12:29] LABS: HEMOGLOBIN 10.1 g/dl (13.5-17.5); MEAN CORPUSCULAR HEMOGLOBIN 29.8 pg (27.0-33.0); MEAN CORPUSCULAR HGB CONC 33.7 g/dl (32.0-36.5); MEAN CORPUSCULAR VOLUME 88.5 fl (80.0-96.0); PLATELET COUNT, AUTOMATED 329 10^3/uL (150-450); RED BLOOD COUNT 3.39 10^6/uL (4.30-6.10)
[2023-02-15] MEDS: SYMBICORT 160/4.5MCG INHALER 6GM INH SCH ×2 (12:39→20:08)
[2023-02-15] MEDS: LR 1,000 ML IV SCH (12:44)
[2023-02-15] MEDS: FLUCONAZOLE 200 MG in IV 1 EA IV SCH (14:39)
[2023-02-15] MEDS ORDERED: LR 1,000 ML IV ONE (15:00)
[2023-02-15 17:31] LABS: BASO # 0.1 10^3/uL (0.0-0.2); BASO % 0.2 % (0.0-1.0); HEMATOCRIT 27.1 % (42.0-52.0); LYMPH % 2.5 % (24.0-44.0); MEAN CORPUSCULAR HEMOGLOBIN 29.3 pg (27.0-33.0); MEAN CORPUSCULAR HGB CONC 33.2 g/dl (32.0-36.5); MEAN CORPUSCULAR VOLUME 88.3 fl (80.0-96.0); MONO # 1.3 10^3/uL (0.0-0.8); MONO % 3.2 % (2.0-8.0); NEUTROPHILS # 36.9 10^3/uL (1.5-8.5); NEUTROPHILS % 92.1 % (36.0-66.0); PLATELET COUNT, AUTOMATED 317 10^3/uL (150-450); RED BLOOD COUNT 3.07 10^6/uL (4.30-6.10)
[2023-02-15 17:33] LABS: WHITE BLOOD COUNT 40.1 10^3/uL (4.0-10.0)
[2023-02-15] MEDS: fentaNYL 100 MCG/2 ML INJECTION IV PRN (20:11)
[2023-02-15] MEDS ORDERED: VANCOMYCIN HCL 750 MG, VIAL MATE ADAPTER 1 EACH in D5W 250 ML IV SCH (21:00)
[2023-02-15 23:07] LABS: BASO # 0.1 10^3/uL (0.0-0.2); BASO % 0.2 % (0.0-1.0); HEMATOCRIT 26.9 % (42.0-52.0); LYMPH # 0.9 10^3/uL (1.5-5.0); LYMPH % 2.6 % (24.0-44.0); MEAN CORPUSCULAR HEMOGLOBIN 29.8 pg (27.0-33.0); MEAN CORPUSCULAR HGB CONC 33.5 g/dl (32.0-36.5); MEAN CORPUSCULAR VOLUME 89.1 fl (80.0-96.0); MONO # 1.2 10^3/uL (0.0-0.8); MONO % 3.6 % (2.0-8.0); NEUTROPHILS # 31.8 10^3/uL (1.5-8.5); PLATELET COUNT, AUTOMATED 343 10^3/uL (150-450); RED BLOOD COUNT 3.02 10^6/uL (4.30-6.10)
[2023-02-15 23:13] LABS: WHITE BLOOD COUNT 34.6 10^3/uL (4.0-10.0)
[2023-02-16] VITALS (25 sets, daily range): BP systolic 116–161; BP diastolic 63–88; TEMP 97.5–99.5; O2SAT 91–97
[2023-02-16] MEDS: fentaNYL 100 MCG/2 ML INJECTION IV PRN ×5 (01:01→20:06)
[2023-02-16] MEDS: PANTOPRAZOLE 40MG VIAL IV SCH (01:01)
[2023-02-16] MEDS: METOCLOPRAMIDE INJ 10MG/2ML VIAL IV SCH ×4 (03:15→20:05)
[2023-02-16] MEDS ORDERED: ACETAMINOPHEN *IV* 1,000 MG in IV 1 EA IV ONE (04:00)
[2023-02-16] MEDS: LR 1,000 ML IV SCH ×3 (05:11→23:13)
[2023-02-16] MEDS: PIPERACILLIN/TAZOBACTAM SOD 3.375 GM in D5W MINI-BAG PLUS 50 ML IV SCH (05:11)
[2023-02-16 05:29] LABS: BASO % 0.1 % (0.0-1.0); HEMATOCRIT 25.2 % (42.0-52.0); HEMOGLOBIN 8.4 g/dl (13.5-17.5); LYMPH # 0.8 10^3/uL (1.5-5.0); LYMPH % 2.5 % (24.0-44.0); MEAN CORPUSCULAR HEMOGLOBIN 29.4 pg (27.0-33.0); MEAN CORPUSCULAR HGB CONC 33.3 g/dl (32.0-36.5); MEAN CORPUSCULAR VOLUME 88.1 fl (80.0-96.0); MONO # 1.2 10^3/uL (0.0-0.8); MONO % 3.9 % (2.0-8.0); NEUTROPHILS # 28.8 10^3/uL (1.5-8.5); NEUTROPHILS % 91.7 % (36.0-66.0); PLATELET COUNT, AUTOMATED 354 10^3/uL (150-450); RED BLOOD COUNT 2.86 10^6/uL (4.30-6.10)
[2023-02-16 05:34] LABS: WHITE BLOOD COUNT 31.4 10^3/uL (4.0-10.0)
[2023-02-16 05:55] LABS: CALCIUM LEVEL 6.9 MG/DL (8.3-10.6); CREATININE FOR GFR 4.24 MG/DL (0.70-1.30); GLOMERULAR FILTRATION RATE 14.8 (>42); MAGNESIUM LEVEL 1.9 MG/DL (1.8-2.4); POTASSIUM SERUM 4.4 MMOL/L (3.5-5.1)
[2023-02-16] MEDS: SYMBICORT 160/4.5MCG INHALER 6GM INH SCH ×2 (07:30→19:43)
[2023-02-16] MEDS: PIPERACILLIN/TAZOBACTAM SOD 4.5 GM in D5W MINI-BAG PLUS 50 ML IV SCH ×2 (11:18→23:12)
[2023-02-16] MEDS ORDERED: VANCOMYCIN INTERMITTENT/PULSE DOSING BY CLINICAL PHARMACIST PER DOSING PROTOCOL XX SCH (12:50)
[2023-02-16 13:10] LABS: VANCOMYCIN RANDOM 22.5 UG/ML
[2023-02-16] MEDS: METOPROLOL 5 MG/5 ML VIAL IV PRN (13:40)
[2023-02-16] MEDS: FLUCONAZOLE 200 MG in IV 1 EA IV SCH (16:07)
[2023-02-16] MEDS: HEPARIN SOD (PORCINE) 5000UNITS/ML 1ML VIAL/SYRINGE SQ SCH (20:05)
[2023-02-16] MEDS: ONDANSETRON 4MG 2ML VIAL IV PRN (21:08)
[2023-02-16] MEDS: BACLOFEN 5MG PER 1/2 TABLET PO SCH (22:28)
[2023-02-17] VITALS (14 sets, daily range): BP systolic 137–159; BP diastolic 72–83; TEMP 97.7–99.1; O2SAT 92–96
[2023-02-17] MEDS: fentaNYL 100 MCG/2 ML INJECTION IV PRN ×3 (00:13→21:15)
[2023-02-17 01:26] LABS: HEMATOCRIT 28.7 % (42.0-52.0); HEMOGLOBIN 9.7 g/dl (13.5-17.5); MEAN CORPUSCULAR HEMOGLOBIN 29.9 pg (27.0-33.0); MEAN CORPUSCULAR HGB CONC 33.8 g/dl (32.0-36.5); MEAN CORPUSCULAR VOLUME 88.6 fl (80.0-96.0); PLATELET COUNT, AUTOMATED 382 10^3/uL (150-450); RED BLOOD COUNT 3.24 10^6/uL (4.30-6.10); WHITE BLOOD COUNT 29.5 10^3/uL (4.0-10.0)
[2023-02-17] MEDS ORDERED: BACLOFEN 10 MG TAB PO ONE (02:00)
[2023-02-17] MEDS: METOCLOPRAMIDE INJ 10MG/2ML VIAL IV SCH ×4 (04:03→20:54)
[2023-02-17 07:12] LABS: HEMATOCRIT 27.8 % (42.0-52.0); HEMOGLOBIN 9.3 g/dl (13.5-17.5); MEAN CORPUSCULAR HEMOGLOBIN 29.8 pg (27.0-33.0); MEAN CORPUSCULAR HGB CONC 33.5 g/dl (32.0-36.5); MEAN CORPUSCULAR VOLUME 89.1 fl (80.0-96.0); PLATELET COUNT, AUTOMATED 388 10^3/uL (150-450); RED BLOOD COUNT 3.12 10^6/uL (4.30-6.10)
[2023-02-17 07:47] LABS: ALBUMIN 1.4 G/DL (3.2-5.2); BILIRUBIN,TOTAL 1.1 MG/DL (0.3-1.2); CALCIUM LEVEL 6.7 MG/DL (8.3-10.6); CREATININE FOR GFR 5.23 MG/DL (0.70-1.30); GLOMERULAR FILTRATION RATE 11.7 (>42); POTASSIUM SERUM 4.5 MMOL/L (3.5-5.1); TOTAL PROTEIN 4.6 G/DL (5.7-8.2)
[2023-02-17] MEDS: SYMBICORT 160/4.5MCG INHALER 6GM INH SCH ×2 (08:25→19:13)
[2023-02-17] MEDS: PANTOPRAZOLE 40MG VIAL IV SCH (08:35)
[2023-02-17] MEDS: HEPARIN SOD (PORCINE) 5000UNITS/ML 1ML VIAL/SYRINGE SQ SCH (08:35)
[2023-02-17] MEDS: PIPERACILLIN/TAZOBACTAM SOD 2.25 GM in D5W MINI-BAG PLUS 50 ML IV SCH ×3 (10:52→22:46)
[2023-02-17 11:08] LABS: PHOSPHORUS LEVEL 7.9 MG/DL (2.4-5.1)
[2023-02-17 11:34] LABS: HEMATOCRIT 27.8 % (42.0-52.0); HEMOGLOBIN 9.4 g/dl (13.5-17.5); MEAN CORPUSCULAR HGB CONC 33.8 g/dl (32.0-36.5); MEAN CORPUSCULAR VOLUME 88.8 fl (80.0-96.0); PLATELET COUNT, AUTOMATED 421 10^3/uL (150-450); RED BLOOD COUNT 3.13 10^6/uL (4.30-6.10); WHITE BLOOD COUNT 23.7 10^3/uL (4.0-10.0)
[2023-02-17 13:07] LABS: MAGNESIUM LEVEL 2.1 MG/DL (1.8-2.4)
[2023-02-17] MEDS: LR 1,000 ML IV SCH (13:17)
[2023-02-17] MEDS ORDERED: LIDOCAINE 1% MDV 20ML VIAL As Ordered ONE (16:15)
[2023-02-17] MEDS: SODIUM CHLORIDE 0.9% INJ 10 ML SYR IV SCH (18:00)
[2023-02-17] MEDS ORDERED: SODIUM CHLORIDE 0.9% INJ 10 ML SYR IV PRN (18:00)
[2023-02-17] MEDS ORDERED: AMINO AC/ELECTROLYTE/DEX/CALC 2,566 ML IV SCH (18:00)
[2023-02-17] MEDS: FLUCONAZOLE 100 MG in IV 1 EA IV SCH (18:21)
[2023-02-17 18:42] LABS: MEAN CORPUSCULAR HEMOGLOBIN 29.4 pg (27.0-33.0); MEAN CORPUSCULAR HGB CONC 33.3 g/dl (32.0-36.5); MEAN CORPUSCULAR VOLUME 88.2 fl (80.0-96.0); PLATELET COUNT, AUTOMATED 433 10^3/uL (150-450); WHITE BLOOD COUNT 18.4 10^3/uL (4.0-10.0)
[2023-02-17] MEDS: BACLOFEN 5MG PER 1/2 TABLET PO SCH (20:54)
[2023-02-17] MEDS: HEPARIN DRIP 25,000 UNITS in IV 1 EA IV SCH (21:03)
[2023-02-18] VITALS (16 sets, daily range): BP systolic 148–168; BP diastolic 67–98; TEMP 97–98.7; O2SAT 92–97
[2023-02-18 00:06] LABS: HEMATOCRIT 28.3 % (42.0-52.0); HEMOGLOBIN 9.4 g/dl (13.5-17.5); MEAN CORPUSCULAR HEMOGLOBIN 29.7 pg (27.0-33.0); MEAN CORPUSCULAR HGB CONC 33.2 g/dl (32.0-36.5); MEAN CORPUSCULAR VOLUME 89.3 fl (80.0-96.0); PLATELET COUNT, AUTOMATED 442 10^3/uL (150-450); RED BLOOD COUNT 3.17 10^6/uL (4.30-6.10)
[2023-02-18] MEDS: METOCLOPRAMIDE INJ 10MG/2ML VIAL IV SCH ×4 (02:18→20:22)
[2023-02-18] MEDS: fentaNYL 100 MCG/2 ML INJECTION IV PRN ×2 (02:18→12:09)
[2023-02-18] MEDS: PIPERACILLIN/TAZOBACTAM SOD 2.25 GM in D5W MINI-BAG PLUS 50 ML IV SCH ×4 (03:05→21:47)
[2023-02-18] MEDS: SODIUM CHLORIDE 0.9% INJ 10 ML SYR IV SCH ×2 (04:02→17:36)
[2023-02-18 05:48] LABS: HEMATOCRIT 28.3 % (42.0-52.0); HEMOGLOBIN 9.4 g/dl (13.5-17.5); MEAN CORPUSCULAR HEMOGLOBIN 29.6 pg (27.0-33.0); MEAN CORPUSCULAR HGB CONC 33.2 g/dl (32.0-36.5); PLATELET COUNT, AUTOMATED 464 10^3/uL (150-450); RED BLOOD COUNT 3.18 10^6/uL (4.30-6.10); WHITE BLOOD COUNT 13.2 10^3/uL (4.0-10.0)
[2023-02-18 06:15] LABS: C REACTIVE PROTEIN QUANTITATIV 16.3 MG/DL (<1.0); VANCOMYCIN RANDOM 14.7 UG/ML
[2023-02-18 06:18] LABS: BILIRUBIN,TOTAL 0.7 MG/DL (0.3-1.2); CREATININE FOR GFR 4.87 MG/DL (0.70-1.30); GLOMERULAR FILTRATION RATE 12.7 (>42); POTASSIUM SERUM 4.4 MMOL/L (3.5-5.1); TOTAL PROTEIN 5.1 G/DL (5.7-8.2)
[2023-02-18] MEDS: SYMBICORT 160/4.5MCG INHALER 6GM INH SCH ×2 (07:51→20:17)
[2023-02-18] MEDS: PANTOPRAZOLE 40MG VIAL IV SCH (08:19)
[2023-02-18] MEDS ORDERED: VANCOMYCIN HCL 500 MG in D5W MINI-BAG PLUS 100 ML IV ONE (09:00)
[2023-02-18] MEDS: HEPARIN DRIP 25,000 UNITS in IV 1 EA IV SCH (12:13)
[2023-02-18 15:22] LABS: ALBUMIN 1.5 G/DL (3.2-5.2)
[2023-02-18] MEDS: FLUCONAZOLE 100 MG in IV 1 EA IV SCH (15:39)
[2023-02-18] MEDS ORDERED: AMINO AC/ELECTROLYTE/DEX/CALC 2,566 ML IV SCH (18:00)
[2023-02-18] MEDS: SIMETHICONE 80MG CHEW TAB PO SCH (20:46)
[2023-02-18] MEDS: ACETAMINOPHEN 500 MG TAB PO PRN (21:49)
[2023-02-19] VITALS (12 sets, daily range): BP systolic 160–200; BP diastolic 84–110; TEMP 97.6–98.9; O2SAT 93–96
[2023-02-19 00:06] LABS: HEMATOCRIT 28.9 % (42.0-52.0); HEMOGLOBIN 9.5 g/dl (13.5-17.5)
[2023-02-19] MEDS: HEPARIN DRIP 25,000 UNITS in IV 1 EA IV SCH ×2 (00:16→12:49)
[2023-02-19] MEDS: METOCLOPRAMIDE INJ 10MG/2ML VIAL IV SCH ×4 (03:08→22:23)
[2023-02-19] MEDS: PIPERACILLIN/TAZOBACTAM SOD 2.25 GM in D5W MINI-BAG PLUS 50 ML IV SCH ×4 (03:08→22:24)
[2023-02-19] MEDS: ACETAMINOPHEN 500 MG TAB PO PRN ×2 (04:02→23:02)
[2023-02-19] MEDS: SODIUM CHLORIDE 0.9% INJ 10 ML SYR IV SCH ×2 (05:45→17:18)
[2023-02-19 07:53] LABS: BASO % 0.2 % (0.0-1.0); EOS # 0.1 10^3/uL (0.0-0.5); EOS % 0.6 % (0.0-3.0); HEMATOCRIT 31.4 % (42.0-52.0); HEMOGLOBIN 10.2 g/dl (13.5-17.5); LYMPH # 0.6 10^3/uL (1.5-5.0); LYMPH % 4.6 % (24.0-44.0); MEAN CORPUSCULAR HEMOGLOBIN 29.4 pg (27.0-33.0); MEAN CORPUSCULAR HGB CONC 32.5 g/dl (32.0-36.5); MEAN CORPUSCULAR VOLUME 90.5 fl (80.0-96.0); MONO # 0.8 10^3/uL (0.0-0.8); MONO % 6.2 % (2.0-8.0); NEUTROPHILS # 10.9 10^3/uL (1.5-8.5); NEUTROPHILS % 86.3 % (36.0-66.0); PLATELET COUNT, AUTOMATED 577 10^3/uL (150-450); RED BLOOD COUNT 3.47 10^6/uL (4.30-6.10); WHITE BLOOD COUNT 12.7 10^3/uL (4.0-10.0)
[2023-02-19] MEDS: METOPROLOL 5 MG/5 ML VIAL IV PRN (07:56)
[2023-02-19] MEDS: PANTOPRAZOLE 40MG VIAL IV SCH (08:01)
[2023-02-19] MEDS: SIMETHICONE 80MG CHEW TAB PO SCH ×3 (08:01→22:23)
[2023-02-19] MEDS: ONDANSETRON 4MG 2ML VIAL IV PRN (08:07)
[2023-02-19] MEDS: METOPROLOL TART 12.5 MG PER 1/2 TAB PO SCH (08:08)
[2023-02-19 08:18] LABS: ALBUMIN 1.7 G/DL (3.2-5.2); BILIRUBIN,TOTAL 0.7 MG/DL (0.3-1.2); CALCIUM LEVEL 7.4 MG/DL (8.3-10.6); CREATININE FOR GFR 3.81 MG/DL (0.70-1.30); GLOMERULAR FILTRATION RATE 16.8 (>42); MAGNESIUM LEVEL 2.5 MG/DL (1.8-2.4); POTASSIUM SERUM 3.9 MMOL/L (3.5-5.1); TOTAL PROTEIN 5.6 G/DL (5.7-8.2)
[2023-02-19] MEDS: SYMBICORT 160/4.5MCG INHALER 6GM INH SCH ×2 (08:53→19:32)
[2023-02-19] MEDS ORDERED: **hydrALAZINE** 10 MG TAB PO SCH (09:00)
[2023-02-19] MEDS ORDERED: hydrALAZINE 20MG/ML 1ML VIAL IV STA (11:02)
[2023-02-19] MEDS: **hydrALAZINE** 10 MG TAB PO SCH ×2 (13:44→22:24)
[2023-02-19 15:00] LABS: INR 1.21
[2023-02-19 15:01] LABS: PARTIAL THROMBOPLASTIN TIME 52.5 SECONDS (24.8-34.2)
[2023-02-19] MEDS: FLUCONAZOLE 100 MG in IV 1 EA IV SCH (15:19)
[2023-02-19] MEDS ORDERED: MULTIVITAMIN -ADULT INJECTION 10 ML, ZINC/COPPER/MANGANESE/SELENIUM 1 ML in AMINO AC/EL... IV SCH (18:00)
[2023-02-19 21:35] LABS: INR 1.25; PROTHROMBIN TIME 15.3 SECONDS (12.5-14.5)
[2023-02-19 21:37] LABS: PARTIAL THROMBOPLASTIN TIME 89.8 SECONDS (24.8-34.2)
[2023-02-20] VITALS (7 sets, daily range): BP systolic 124–174; BP diastolic 60–89; TEMP 97.7–98.9; O2SAT 94–98
[2023-02-20] MEDS ORDERED: hydrALAZINE 20MG/ML 1ML VIAL IV ONE (00:35)
[2023-02-20] MEDS: HEPARIN DRIP 25,000 UNITS in IV 1 EA IV SCH ×3 (00:40→23:15)
[2023-02-20 03:46] LABS: INR 1.22; PROTHROMBIN TIME 15.1 SECONDS (12.5-14.5)
[2023-02-20 03:48] LABS: PARTIAL THROMBOPLASTIN TIME 91.1 SECONDS (24.8-34.2)
[2023-02-20] MEDS: PIPERACILLIN/TAZOBACTAM SOD 2.25 GM in D5W MINI-BAG PLUS 50 ML IV SCH ×4 (04:06→21:09)
[2023-02-20] MEDS: METOCLOPRAMIDE INJ 10MG/2ML VIAL IV SCH ×4 (04:06→21:09)
[2023-02-20 05:43] LABS: MAGNESIUM LEVEL 2.3 MG/DL (1.8-2.4)
[2023-02-20] MEDS: SODIUM CHLORIDE 0.9% INJ 10 ML SYR IV SCH ×2 (05:59→18:00)
[2023-02-20] MEDS: **hydrALAZINE** 10 MG TAB PO SCH ×3 (06:26→21:08)
[2023-02-20 06:39] LABS: ALBUMIN 1.8 G/DL (3.2-5.2); BILIRUBIN,TOTAL 0.5 MG/DL (0.3-1.2); CALCIUM LEVEL 7.3 MG/DL (8.3-10.6); CREATININE FOR GFR 2.88 MG/DL (0.70-1.30); GLOMERULAR FILTRATION RATE 23.2 (>42); POTASSIUM SERUM 3.6 MMOL/L (3.5-5.1); TOTAL PROTEIN 5.6 G/DL (5.7-8.2)
[2023-02-20 06:57] LABS: BASO # 0.1 10^3/uL (0.0-0.2); BASO % 0.4 % (0.0-1.0); EOS # 0.1 10^3/uL (0.0-0.5); EOS % 0.9 % (0.0-3.0); HEMATOCRIT 31.5 % (42.0-52.0); HEMOGLOBIN 10.3 g/dl (13.5-17.5); LYMPH # 0.9 10^3/uL (1.5-5.0); LYMPH % 6.9 % (24.0-44.0); MEAN CORPUSCULAR HEMOGLOBIN 29.5 pg (27.0-33.0); MEAN CORPUSCULAR HGB CONC 32.7 g/dl (32.0-36.5); MEAN CORPUSCULAR VOLUME 90.3 fl (80.0-96.0); MONO # 0.9 10^3/uL (0.0-0.8); MONO % 7.2 % (2.0-8.0); NEUTROPHILS # 10.2 10^3/uL (1.5-8.5); NEUTROPHILS % 79.6 % (36.0-66.0); PLATELET COUNT, AUTOMATED 558 10^3/uL (150-450); RED BLOOD COUNT 3.49 10^6/uL (4.30-6.10); WHITE BLOOD COUNT 12.9 10^3/uL (4.0-10.0)
[2023-02-20] MEDS: SYMBICORT 160/4.5MCG INHALER 6GM INH SCH ×2 (08:18→20:41)
[2023-02-20] MEDS: METOPROLOL TART 12.5 MG PER 1/2 TAB PO SCH (08:53)
[2023-02-20] MEDS: PANTOPRAZOLE 40MG VIAL IV SCH (08:53)
[2023-02-20] MEDS: SIMETHICONE 80MG CHEW TAB PO SCH ×3 (08:54→21:06)
[2023-02-20] MEDS: ACETAMINOPHEN 500 MG TAB PO PRN ×3 (09:12→21:06)
[2023-02-20] MEDS: FLUCONAZOLE 100 MG in IV 1 EA IV SCH (15:54)
[2023-02-20 22:36] LABS: MAGNESIUM LEVEL 2.1 MG/DL (1.8-2.4); POTASSIUM SERUM 3.4 MMOL/L (3.5-5.1)
[2023-02-20] MEDS: KCL 10MEQ/100ML SWI (KRUN) 10 MEQ in IV 1 EA IV SCH ×2 (22:55→23:56)
[2023-02-21] VITALS (16 sets, daily range): BP systolic 120–141; BP diastolic 63–76; TEMP 97.3–98.8; O2SAT 90–98
[2023-02-21] MEDS: METOCLOPRAMIDE INJ 10MG/2ML VIAL IV SCH ×4 (03:32→21:07)
[2023-02-21] MEDS: PERCOCET 5MG/325MG TAB PO PRN (03:32)
[2023-02-21 05:05] LABS: HEMATOCRIT 28.8 % (42.0-52.0); HEMOGLOBIN 9.2 g/dl (13.5-17.5); MEAN CORPUSCULAR HEMOGLOBIN 28.9 pg (27.0-33.0); MEAN CORPUSCULAR HGB CONC 31.9 g/dl (32.0-36.5); MEAN CORPUSCULAR VOLUME 90.6 fl (80.0-96.0); PLATELET COUNT, AUTOMATED 545 10^3/uL (150-450); RED BLOOD COUNT 3.18 10^6/uL (4.30-6.10); WHITE BLOOD COUNT 14.4 10^3/uL (4.0-10.0)
[2023-02-21 05:17] LABS: INR 1.22
[2023-02-21 05:19] LABS: PARTIAL THROMBOPLASTIN TIME 80.4 SECONDS (24.8-34.2)
[2023-02-21] MEDS: SODIUM CHLORIDE 0.9% INJ 10 ML SYR IV SCH ×2 (05:24→18:23)
[2023-02-21] MEDS: **hydrALAZINE** 10 MG TAB PO SCH ×3 (05:24→21:08)
[2023-02-21 05:40] LABS: ATYPICAL LYMPH 1 % (0-5); EOSINOPHILS 3 % (0-3); LYMPHOCYTES 8 % (16-44); MONOCYTES 2 % (0-5); NEUTROPHILS 85 % (28-66); PLATELET ESTIMATE INCREASED (NORMAL)
[2023-02-21 05:42] LABS: ANISOCYTOSIS 1+
[2023-02-21 06:24] LABS: ALBUMIN 1.8 G/DL (3.2-5.2); BILIRUBIN,TOTAL 0.4 MG/DL (0.3-1.2); CREATININE FOR GFR 2.15 MG/DL (0.70-1.30); GLOMERULAR FILTRATION RATE 32.5 (>42); POTASSIUM SERUM 3.5 MMOL/L (3.5-5.1); TOTAL PROTEIN 5.2 G/DL (5.7-8.2)
[2023-02-21] MEDS: SYMBICORT 160/4.5MCG INHALER 6GM INH SCH ×2 (07:56→19:51)
[2023-02-21] MEDS: PANTOPRAZOLE 40MG VIAL IV SCH (08:10)
[2023-02-21] MEDS: SIMETHICONE 80MG CHEW TAB PO SCH ×3 (08:11→21:07)
[2023-02-21] MEDS: METOPROLOL TART 25 MG TABLET PO SCH (09:00)
[2023-02-21 09:34] LABS: CLOSTRIDIUM DIFFICILE PCR NEGATIVE (NEGATIVE)
[2023-02-21] MEDS: HEPARIN DRIP 25,000 UNITS in IV 1 EA IV SCH (10:21)
[2023-02-21] MEDS: ACETAMINOPHEN 500 MG TAB PO PRN ×2 (14:42→21:07)
[2023-02-21] MEDS ORDERED: LOPERAMIDE 2 MG CAPLET PO ONE (16:55)
[2023-02-21] MEDS: FLUCONAZOLE 100 MG TAB PO SCH (17:19)
[2023-02-21] MEDS: APIXABAN 5 MG TAB (ELIQUIS) PO SCH (21:07)
[2023-02-22] VITALS (20 sets, daily range): BP systolic 115–144; BP diastolic 66–77; TEMP 97.2–98.2; O2SAT 95–100
[2023-02-22] MEDS: METOCLOPRAMIDE INJ 10MG/2ML VIAL IV SCH ×4 (03:19→20:53)
[2023-02-22] MEDS: oxyCODONE 5MG TAB PO PRN ×2 (03:40→20:52)
[2023-02-22] MEDS: SODIUM CHLORIDE 0.9% INJ 10 ML SYR IV SCH ×2 (05:34→17:05)
[2023-02-22] MEDS: **hydrALAZINE** 10 MG TAB PO SCH ×3 (05:35→21:18)
[2023-02-22 06:23] LABS: HEMOGLOBIN 8.8 g/dl (13.5-17.5); MEAN CORPUSCULAR HEMOGLOBIN 29.4 pg (27.0-33.0); MEAN CORPUSCULAR HGB CONC 32.6 g/dl (32.0-36.5); MEAN CORPUSCULAR VOLUME 90.3 fl (80.0-96.0); PLATELET COUNT, AUTOMATED 551 10^3/uL (150-450); RED BLOOD COUNT 2.99 10^6/uL (4.30-6.10); WHITE BLOOD COUNT 10.8 10^3/uL (4.0-10.0)
[2023-02-22 07:01] LABS: ATYPICAL LYMPH 2 % (0-5); LYMPHOCYTES 8 % (16-44); METAMYELOCYTES 3 % (0-0); MONOCYTES 9 % (0-5); NEUTROPHILS 76 % (28-66)
[2023-02-22 07:02] LABS: ALBUMIN 1.9 G/DL (3.2-5.2); BILIRUBIN,TOTAL 0.4 MG/DL (0.3-1.2); CALCIUM LEVEL 7.2 MG/DL (8.3-10.6); CREATININE FOR GFR 1.86 MG/DL (0.70-1.30); GLOMERULAR FILTRATION RATE 38.4 (>42); MAGNESIUM LEVEL 1.9 MG/DL (1.8-2.4); PLATELET ESTIMATE INCREASED (NORMAL); POTASSIUM SERUM 3.6 MMOL/L (3.5-5.1); TOTAL PROTEIN 5.4 G/DL (5.7-8.2)
[2023-02-22] MEDS: SYMBICORT 160/4.5MCG INHALER 6GM INH SCH ×2 (07:44→19:42)
[2023-02-22] MEDS: SIMETHICONE 80MG CHEW TAB PO SCH ×3 (09:35→20:52)
[2023-02-22] MEDS: PANTOPRAZOLE 40MG VIAL IV SCH (09:35)
[2023-02-22] MEDS: METOPROLOL TART 25 MG TABLET PO SCH (09:35)
[2023-02-22] MEDS: APIXABAN 5 MG TAB (ELIQUIS) PO SCH ×2 (09:35→20:53)
[2023-02-22] MEDS: PERCOCET 5MG/325MG TAB PO PRN (14:41)
[2023-02-22] MEDS: FLUCONAZOLE 100 MG TAB PO SCH (17:05)
[2023-02-23] VITALS (16 sets, daily range): BP systolic 144–176; BP diastolic 69–84; TEMP 97.2–98.1; O2SAT 95–99
[2023-02-23] MEDS: METOCLOPRAMIDE INJ 10MG/2ML VIAL IV SCH ×4 (03:21→20:43)
[2023-02-23] MEDS: SODIUM CHLORIDE 0.9% INJ 10 ML SYR IV SCH ×2 (05:07→17:03)
[2023-02-23] MEDS: **hydrALAZINE** 10 MG TAB PO SCH ×3 (05:40→20:50)
[2023-02-23] MEDS: oxyCODONE 5MG TAB PO PRN ×2 (05:46→14:42)
[2023-02-23] MEDS: SYMBICORT 160/4.5MCG INHALER 6GM INH SCH ×2 (07:39→19:43)
[2023-02-23] MEDS: PANTOPRAZOLE 40MG VIAL IV SCH (09:11)
[2023-02-23] MEDS: METOPROLOL TART 25 MG TABLET PO SCH (09:12)
[2023-02-23] MEDS: SIMETHICONE 80MG CHEW TAB PO SCH ×3 (09:12→20:43)
[2023-02-23] MEDS: APIXABAN 5 MG TAB (ELIQUIS) PO SCH ×2 (09:12→20:43)
[2023-02-23] MEDS: FLUCONAZOLE 100 MG TAB PO SCH (14:41)
[2023-02-24] VITALS: BP_SYST 152; BP_SYST 176; BP_DIAS 70; BP_DIAS 84; TEMP 98.1; TEMP 98.2; O2SAT 99
[2023-02-24] MEDS: METOCLOPRAMIDE INJ 10MG/2ML VIAL IV SCH ×2 (03:04→08:45)
[2023-02-24] MEDS: oxyCODONE 5MG TAB PO PRN (03:11)
[2023-02-24 04:00] VITALS: BP 140/63; TEMP 97.3; O2SAT 98
[2023-02-24] MEDS: SODIUM CHLORIDE 0.9% INJ 10 ML SYR IV SCH (05:13)
[2023-02-24] MEDS: **hydrALAZINE** 10 MG TAB PO SCH (05:13)
[2023-02-24 06:17] LABS: BASO # 0.1 10^3/uL (0.0-0.2); BASO % 0.7 % (0.0-1.0); EOS # 0.2 10^3/uL (0.0-0.5); EOS % 2.3 % (0.0-3.0); HEMATOCRIT 26.7 % (42.0-52.0); HEMOGLOBIN 8.7 g/dl (13.5-17.5); LYMPH # 1.2 10^3/uL (1.5-5.0); LYMPH % 11.2 % (24.0-44.0); MEAN CORPUSCULAR HEMOGLOBIN 29.9 pg (27.0-33.0); MEAN CORPUSCULAR HGB CONC 32.6 g/dl (32.0-36.5); MEAN CORPUSCULAR VOLUME 91.8 fl (80.0-96.0); MONO # 0.7 10^3/uL (0.0-0.8); MONO % 6.2 % (2.0-8.0); NEUTROPHILS % 75.7 % (36.0-66.0); PLATELET COUNT, AUTOMATED 625 10^3/uL (150-450); RED BLOOD COUNT 2.91 10^6/uL (4.30-6.10); WHITE BLOOD COUNT 10.6 10^3/uL (4.0-10.0)
[2023-02-24 07:50] VITALS: BP 147/77; TEMP 98.1; O2SAT 97
[2023-02-24] MEDS: SYMBICORT 160/4.5MCG INHALER 6GM INH SCH (08:18)
[2023-02-24 08:45] VITALS: BP 147/77
[2023-02-24] MEDS: METOPROLOL TART 25 MG TABLET PO SCH (08:45)
[2023-02-24] MEDS: SIMETHICONE 80MG CHEW TAB PO SCH (08:45)
[2023-02-24] MEDS: PANTOPRAZOLE 40MG VIAL IV SCH (08:45)
[2023-02-24] MEDS: APIXABAN 5 MG TAB (ELIQUIS) PO SCH (08:45)
[2023-02-24] MEDS: MAG SULF 1GM/100ML (MAG RUN) 1 GM in IV 1 EA IV SCH ×2 (08:47→10:54)
[2023-02-24] MEDS: ACETAMINOPHEN 500 MG TAB PO PRN (08:52)
[2023-02-24] MEDS ORDERED: METO1TAB87 PO (13:04)
[2023-02-24] MEDS ORDERED: PERCOCET PO (13:04)
[2023-02-24] MEDS ORDERED: ELIQ5TAB PO (13:04)
== END 2023-02-24 15:33 | disposition home health service (06) | DRG 853 ==
LOC: M ED 01:14 → M SDC 08:29 → M MSPAV 11:51 → M MS5PR 12:50 → M MSPAV 16:05 → M PCU 02-10 11:27 → M ICU 02-15 10:29 → M PCU 02-21 00:45
PROVIDERS: ADMIT Surgery; ATTEND Surgery
PROC: 0DTJ4ZZ Resection of Appendix, Percutaneous Endoscopic Approach (ICD-10-PCS; principal; 2023-02-06 09:15)
PROC: B246ZZZ Ultrasonography of Right and Left Heart (ICD-10-PCS; 2023-02-07)
PROC: 30233K1 Transfusion of Nonautologous Frozen Plasma into Peripheral Vein, Percutaneous Approach (ICD-10-PCS; 2023-02-14)
PROC: 0W9G30Z Drainage of Peritoneal Cavity with Drainage Device, Percutaneous Approach (ICD-10-PCS; 2023-02-14)
PROC: 0DB80ZZ Excision of Small Intestine, Open Approach (ICD-10-PCS; 2023-02-15)
PROC: 30233N1 Transfusion of Nonautologous Red Blood Cells into Peripheral Vein, Percutaneous Approach (ICD-10-PCS; 2023-02-15)
PROC: 02HV33Z Insertion of Infusion Device into Superior Vena Cava, Percutaneous Approach (ICD-10-PCS; 2023-02-17)
DX: A41.9 Sepsis, unspecified organism (principal); K35.32 Acute appendicitis with perforation, localized peritonitis, and gangrene, without abscess; J96.01 Acute respiratory failure with hypoxia; I50.33 Acute on chronic diastolic (congestive) heart failure; N17.0 Acute kidney failure with tubular necrosis; K56.7 Ileus, unspecified; K91.89 Other postprocedural complications and disorders of digestive system; K62.5 Hemorrhage of anus and rectum; J98.11 Atelectasis; D62 Acute posthemorrhagic anemia; K91.871 Postprocedural hematoma of a digestive system organ or structure following other procedure; D68.32 Hemorrhagic disorder due to extrinsic circulating anticoagulants; I11.0 Hypertensive heart disease with heart failure; E78.5 Hyperlipidemia, unspecified; G47.33 Obstructive sleep apnea (adult) (pediatric); M54.2 Cervicalgia; F32.A Depression, unspecified; Z85.46 Personal history of malignant neoplasm of prostate; Z79.899 Other long term (current) drug therapy; Z91.012 Allergy to eggs; Z20.822 Contact with and (suspected) exposure to COVID-19; N40.0 Benign prostatic hyperplasia without lower urinary tract symptoms; Z83.3 Family history of diabetes mellitus; Z90.79 Acquired absence of other genital organ(s); I48.91 Unspecified atrial fibrillation; J44.9 Chronic obstructive pulmonary disease, unspecified; J45.20 Mild intermittent asthma, uncomplicated; R65.20 Severe sepsis without septic shock

== ENCOUNTER → 2023-03-03 | Outpatient (CLI) | payer MEDICARE, BC, OTHER ==
[~2023-03-03] MED LIST changes: +ELIQ5TAB PO; +IBUP200T46 PO; +MAGN500T6 PO; +METO1TAB87 PO; +TURM1TAB PO
== END ==
LOC: M PLALAB 11:43
PROVIDERS: ATTEND Urology
DX: C61 Malignant neoplasm of prostate (principal)

== ENCOUNTER → 2023-03-14 | Outpatient (CLI) | payer MEDICARE, BC, OTHER ==
[2023-03-14 13:35] LABS: BASO % 0.7 % (0.0-1.0); EOS # 0.2 10^3/uL (0.0-0.5); EOS % 3.3 % (0.0-3.0); HEMOGLOBIN 9.3 g/dl (13.5-17.5); LYMPH # 1.1 10^3/uL (1.5-5.0); LYMPH % 23.9 % (24.0-44.0); MEAN CORPUSCULAR HEMOGLOBIN 28.9 pg (27.0-33.0); MEAN CORPUSCULAR VOLUME 93.2 fl (80.0-96.0); MONO # 0.6 10^3/uL (0.0-0.8); MONO % 12.2 % (2.0-8.0); NEUTROPHILS # 2.7 10^3/uL (1.5-8.5); NEUTROPHILS % 59.5 % (36.0-66.0); PLATELET COUNT, AUTOMATED 203 10^3/uL (150-450); RED BLOOD COUNT 3.22 10^6/uL (4.30-6.10); WHITE BLOOD COUNT 4.5 10^3/uL (4.0-10.0)
[2023-03-14 13:42] LABS: ALKALINE PHOSPHATASE 95 U/L (46-116); ALT/SGPT 19 U/L (7.0-40); AST/SGOT 21 U/L (<34); BILIRUBIN,TOTAL 0.3 MG/DL (0.3-1.2); BLOOD UREA NITROGEN 19 MG/DL (9-23); CALCIUM LEVEL 8.6 MG/DL (8.3-10.6); CARBON DIOXIDE LEVEL 29 MMOL/L (20-31); CHLORIDE LEVEL 106 MMOL/L (98-107); CREATININE FOR GFR 1.24 MG/DL (0.70-1.30); GLOMERULAR FILTRATION RATE > 60.0 (>42); GLUCOSE, FASTING 132 MG/DL (74-106); POTASSIUM SERUM 4.5 MMOL/L (3.5-5.1); SODIUM LEVEL 143 MMOL/L (136-145); TOTAL PROTEIN 6.6 G/DL (5.7-8.2)
== END ==
LOC: M PLALAB 10:56
PROVIDERS: ATTEND Family Medicine
DX: D64.9 Anemia, unspecified (principal)

== ENCOUNTER → 2023-05-16 | Outpatient (CLI) | payer MEDICARE, BC, OTHER ==
[2023-05-16 15:48] LABS: BASO # 0.1 10^3/uL (0.0-0.2); BASO % 0.9 % (0.0-1.0); EOS # 0.2 10^3/uL (0.0-0.5); EOS % 4.1 % (0.0-3.0); HEMATOCRIT 42.1 % (42.0-52.0); HEMOGLOBIN 13.4 g/dl (13.5-17.5); LYMPH # 1.8 10^3/uL (1.5-5.0); LYMPH % 32.4 % (24.0-44.0); MEAN CORPUSCULAR HEMOGLOBIN 29.3 pg (27.0-33.0); MEAN CORPUSCULAR HGB CONC 31.8 g/dl (32.0-36.5); MEAN CORPUSCULAR VOLUME 92.1 fl (80.0-96.0); MONO # 0.7 10^3/uL (0.0-0.8); MONO % 12.7 % (2.0-8.0); NEUTROPHILS # 2.8 10^3/uL (1.5-8.5); NEUTROPHILS % 49.5 % (36.0-66.0); PLATELET COUNT, AUTOMATED 241 10^3/uL (150-450); RED BLOOD COUNT 4.57 10^6/uL (4.30-6.10); WHITE BLOOD COUNT 5.6 10^3/uL (4.0-10.0)
[2023-05-16 16:08] LABS: ALKALINE PHOSPHATASE 81 U/L (46-116); ALT/SGPT 31 U/L (7.0-40); AST/SGOT 18 U/L (<34); BILIRUBIN,TOTAL 0.4 MG/DL (0.3-1.2); BLOOD UREA NITROGEN 25 MG/DL (9-23); CALCIUM LEVEL 9.4 MG/DL (8.3-10.6); CARBON DIOXIDE LEVEL 33 MMOL/L (20-31); CHLORIDE LEVEL 103 MMOL/L (98-107); CREATININE FOR GFR 1.13 MG/DL (0.70-1.30); GLOMERULAR FILTRATION RATE > 60.0 (>42); GLUCOSE, FASTING 80 MG/DL (74-106); POTASSIUM SERUM 4.1 MMOL/L (3.5-5.1); SODIUM LEVEL 139 MMOL/L (136-145); TOTAL PROTEIN 7.4 G/DL (5.7-8.2)
== END ==
LOC: M PLALAB 13:33
PROVIDERS: ATTEND Family Medicine
DX: D64.9 Anemia, unspecified (principal)

== ENCOUNTER → 2023-06-09 | Outpatient (CLI) | payer MEDICARE, BC, OTHER ==
[2023-06-09 18:24] LABS: BASO # 0.1 10^3/uL (0.0-0.2); BASO % 0.7 % (0.0-1.0); EOS # 0.3 10^3/uL (0.0-0.5); EOS % 3.6 % (0.0-3.0); HEMATOCRIT 42.2 % (42.0-52.0); HEMOGLOBIN 13.5 g/dl (13.5-17.5); LYMPH # 1.5 10^3/uL (1.5-5.0); LYMPH % 21.5 % (24.0-44.0); MEAN CORPUSCULAR VOLUME 90.8 fl (80.0-96.0); MONO % 14.1 % (2.0-8.0); NEUTROPHILS # 4.1 10^3/uL (1.5-8.5); NEUTROPHILS % 59.8 % (36.0-66.0); PLATELET COUNT, AUTOMATED 210 10^3/uL (150-450); RED BLOOD COUNT 4.65 10^6/uL (4.30-6.10); WHITE BLOOD COUNT 6.9 10^3/uL (4.0-10.0)
[2023-06-09 18:56] LABS: ALBUMIN 3.8 G/DL (3.2-5.2); ALKALINE PHOSPHATASE 72 U/L (46-116); ALT/SGPT 29 U/L (7.0-40); AST/SGOT 17 U/L (<34); BILIRUBIN,TOTAL 0.3 MG/DL (0.3-1.2); BLOOD UREA NITROGEN 20 MG/DL (9-23); CALCIUM LEVEL 8.6 MG/DL (8.3-10.6); CARBON DIOXIDE LEVEL 32 MMOL/L (20-31); CHLORIDE LEVEL 104 MMOL/L (98-107); CHOLESTEROL LEVEL 202 MG/DL (<200); CHOLESTEROL RISK RATIO 3.15 (<5); CREATININE FOR GFR 1.24 MG/DL (0.70-1.30); GLOMERULAR FILTRATION RATE > 60.0 (>42); GLUCOSE, FASTING 95 MG/DL (74-106); HDL CHOLESTEROL 64.1 MG/DL (>40); LDL CHOLESTEROL 94.3 MG/DL (<100); NON-HDL-C 137.9 MG/DL; POTASSIUM SERUM 4.1 MMOL/L (3.5-5.1); SODIUM LEVEL 139 MMOL/L (136-145); TOTAL PROTEIN 7.4 G/DL (5.7-8.2); TRIGLYCERIDES LEVEL 218 MG/DL (<150)
[2023-06-09 18:58] LABS: THYROID STIMULATING HORMONE 0.994 uIU/ML (0.55-4.78)
[2023-06-09 19:09] LABS: HEMOGLOBIN A1c 5.7 % (4.0-6.0)
[2023-06-11 08:12] LABS: LDL DIRECT 116 mg/dL (0-99)
== END ==
LOC: M PLALAB 14:44
PROVIDERS: ATTEND Internal Medicine Cardiovascular Disease
DX: I50.9 Heart failure, unspecified (principal); I48.0 Paroxysmal atrial fibrillation; Z13.29 Encounter for screening for other suspected endocrine disorder; E78.2 Mixed hyperlipidemia; R06.02 Shortness of breath; Z79.899 Other long term (current) drug therapy; C61 Malignant neoplasm of prostate

== ENCOUNTER → 2023-06-09 | Outpatient (CLI) | payer MEDICARE, BC, OTHER | LOC: M PLALAB 14:39 | PROVIDERS: ATTEND Urology | DX: C61 Malignant neoplasm of prostate (principal) ==

== ENCOUNTER → 2023-06-16 | Outpatient (CLI) | payer MEDICARE, BC, OTHER ==
[2023-06-16 18:19] LABS: BASO % 0.5 % (0.0-1.0); EOS # 0.2 10^3/uL (0.0-0.5); EOS % 2.2 % (0.0-3.0); HEMATOCRIT 44.9 % (42.0-52.0); HEMOGLOBIN 14.4 g/dl (13.5-17.5); LYMPH # 1.4 10^3/uL (1.5-5.0); LYMPH % 17.3 % (24.0-44.0); MEAN CORPUSCULAR HEMOGLOBIN 28.7 pg (27.0-33.0); MEAN CORPUSCULAR HGB CONC 32.1 g/dl (32.0-36.5); MEAN CORPUSCULAR VOLUME 89.6 fl (80.0-96.0); MONO # 0.5 10^3/uL (0.0-0.8); MONO % 5.9 % (2.0-8.0); NEUTROPHILS % 73.5 % (36.0-66.0); PLATELET COUNT, AUTOMATED 245 10^3/uL (150-450); RED BLOOD COUNT 5.01 10^6/uL (4.30-6.10); WHITE BLOOD COUNT 8.2 10^3/uL (4.0-10.0)
[2023-06-16 18:52] LABS: BLOOD UREA NITROGEN 24 MG/DL (9-23); CALCIUM LEVEL 9.3 MG/DL (8.3-10.6); CARBON DIOXIDE LEVEL 33 MMOL/L (20-31); CHLORIDE LEVEL 103 MMOL/L (98-107); CREATININE FOR GFR 1.22 MG/DL (0.70-1.30); GLOMERULAR FILTRATION RATE > 60.0 (>42); GLUCOSE, FASTING 118 MG/DL (74-106); SODIUM LEVEL 141 MMOL/L (136-145)
== END ==
LOC: M PLALAB 16:10
PROVIDERS: ATTEND Registered Nurse
DX: I48.0 Paroxysmal atrial fibrillation (principal); I50.9 Heart failure, unspecified

== ENCOUNTER → 2023-06-25 | Outpatient (CLI) | payer MEDICARE, BC, OTHER | LOC: M PLALAB 14:45 | PROVIDERS: ATTEND Psychiatry & Neurology Neurology | DX: E53.8 Deficiency of other specified B group vitamins (principal); E51.9 Thiamine deficiency, unspecified; E53.1 Pyridoxine deficiency; E56.0 Deficiency of vitamin E; G62.9 Polyneuropathy, unspecified; E03.9 Hypothyroidism, unspecified; Z86.39 Personal history of other endocrine, nutritional and metabolic disease ==

== ENCOUNTER → 2023-07-05 | Outpatient (CLI) | payer MEDICARE, BC, OTHER ==
[2023-07-05 15:36] LABS: ALBUMIN 3.7 G/DL (3.2-5.2); BILIRUBIN,TOTAL 0.4 MG/DL (0.3-1.2); CALCIUM LEVEL 8.8 MG/DL (8.3-10.6); CHOLESTEROL RISK RATIO 3.33 (<5); CREATININE FOR GFR 1.27 MG/DL (0.70-1.30); GLOMERULAR FILTRATION RATE 59.5 (>42); HDL CHOLESTEROL 50.4 MG/DL (>40); LDL CHOLESTEROL 66.6 MG/DL (<100); MAGNESIUM LEVEL 1.9 MG/DL (1.8-2.4); NON-HDL-C 117.6 MG/DL; TOTAL PROTEIN 6.8 G/DL (5.7-8.2)
== END ==
LOC: M LAB 14:02
PROVIDERS: ATTEND Internal Medicine Cardiovascular Disease
DX: E78.2 Mixed hyperlipidemia (principal); I48.0 Paroxysmal atrial fibrillation

== ENCOUNTER → 2023-10-09 | Outpatient (REF) | LOC: M PLAIMG 09:03 | PROVIDERS: ATTEND Internal Medicine | DX: R06.02 Shortness of breath (principal); J98.6 Disorders of diaphragm; J98.11 Atelectasis ==

== ENCOUNTER → 2023-10-23 | Outpatient (CLI) | payer MEDICARE, BC, OTHER | LOC: M PLALAB 13:54 | PROVIDERS: ATTEND Urology | DX: C61 Malignant neoplasm of prostate (principal) ==

== ENCOUNTER → 2023-12-02 | Outpatient (CLI) | payer MEDICARE, BC, OTHER ==
[2023-12-02 19:10] LABS: ALBUMIN 3.8 G/DL (3.2-5.2); BILIRUBIN,TOTAL 0.5 MG/DL (0.3-1.2); CALCIUM LEVEL 8.8 MG/DL (8.3-10.6); CHOLESTEROL RISK RATIO 2.68 (<5); CREATININE FOR GFR 1.39 MG/DL (0.70-1.30); GLOMERULAR FILTRATION RATE 53.6 (>42); HDL CHOLESTEROL 55.2 MG/DL (>40); LDL CHOLESTEROL 58.2 MG/DL (<100); MAGNESIUM LEVEL 1.9 MG/DL (1.8-2.4); NON-HDL-C 92.8 MG/DL; POTASSIUM SERUM 4.3 MMOL/L (3.5-5.1); TOTAL PROTEIN 6.8 G/DL (5.7-8.2)
== END ==
LOC: M PLALAB 15:59
PROVIDERS: ATTEND Internal Medicine Cardiovascular Disease
DX: E78.2 Mixed hyperlipidemia (principal); G47.33 Obstructive sleep apnea (adult) (pediatric); R06.02 Shortness of breath

== ENCOUNTER → 2024-01-30 | Outpatient (CLI) | payer MEDICARE, BC, OTHER | LOC: M PLALAB 16:42 | PROVIDERS: ATTEND Urology | DX: C61 Malignant neoplasm of prostate (principal) ==

== ENCOUNTER → 2024-02-17 | Outpatient (CLI) | payer MEDICARE, BC, OTHER ==
[2024-02-17 19:02] LABS: BASO % 0.5 % (0.0-1.0); EOS # 0.2 10^3/uL (0.0-0.5); HEMATOCRIT 40.6 % (42.0-52.0); HEMOGLOBIN 13.5 g/dl (13.5-17.5); LYMPH # 1.6 10^3/uL (1.5-5.0); LYMPH % 28.6 % (24.0-44.0); MEAN CORPUSCULAR HEMOGLOBIN 29.8 pg (27.0-33.0); MEAN CORPUSCULAR HGB CONC 33.3 g/dl (32.0-36.5); MEAN CORPUSCULAR VOLUME 89.6 fl (80.0-96.0); MONO # 0.6 10^3/uL (0.0-0.8); MONO % 10.6 % (2.0-8.0); NEUTROPHILS # 3.1 10^3/uL (1.5-8.5); NEUTROPHILS % 55.9 % (36.0-66.0); PLATELET COUNT, AUTOMATED 207 10^3/uL (150-450); RED BLOOD COUNT 4.53 10^6/uL (4.30-6.10); WHITE BLOOD COUNT 5.5 10^3/uL (4.0-10.0)
[2024-02-17 19:27] LABS: ALBUMIN 3.9 G/DL (3.2-5.2); BILIRUBIN,TOTAL 0.4 MG/DL (0.3-1.2); CALCIUM LEVEL 8.8 MG/DL (8.3-10.6); CHOLESTEROL RISK RATIO 2.53 (<5); CREATININE FOR GFR 1.34 MG/DL (0.70-1.30); GLOMERULAR FILTRATION RATE 55.9 (>42); HDL CHOLESTEROL 54.5 MG/DL (>40); LDL CHOLESTEROL 58.3 MG/DL (<100); NON-HDL-C 83.5 MG/DL; TOTAL PROTEIN 6.9 G/DL (5.7-8.2)
[2024-02-17 19:34] LABS: HEMOGLOBIN A1c 5.8 % (4.0-6.0)
== END ==
LOC: M PLALAB 15:59
PROVIDERS: ATTEND Internal Medicine Cardiovascular Disease
DX: I48.0 Paroxysmal atrial fibrillation (principal); E78.2 Mixed hyperlipidemia; I50.32 Chronic diastolic (congestive) heart failure; G47.33 Obstructive sleep apnea (adult) (pediatric); R06.02 Shortness of breath; Z13.1 Encounter for screening for diabetes mellitus

== ENCOUNTER → 2024-04-20 | Outpatient (CLI) | payer MEDICARE, BC, OTHER | LOC: M PLALAB 12:37 | PROVIDERS: ATTEND Urology | DX: C61 Malignant neoplasm of prostate (principal) ==

== ENCOUNTER → 2024-05-18 | Outpatient (CLI) | payer MEDICARE, BC, OTHER ==
[2024-05-18 16:07] LABS: BASO % 0.7 % (0.0-1.0); EOS # 0.2 10^3/uL (0.0-0.5); EOS % 3.4 % (0.0-3.0); HEMATOCRIT 45.4 % (42.0-52.0); HEMOGLOBIN 14.5 g/dl (13.5-17.5); LYMPH # 1.3 10^3/uL (1.5-5.0); LYMPH % 22.7 % (24.0-44.0); MEAN CORPUSCULAR HEMOGLOBIN 29.5 pg (27.0-33.0); MEAN CORPUSCULAR HGB CONC 31.9 g/dl (32.0-36.5); MEAN CORPUSCULAR VOLUME 92.3 fl (80.0-96.0); MONO # 0.9 10^3/uL (0.0-0.8); NEUTROPHILS # 3.2 10^3/uL (1.5-8.5); NEUTROPHILS % 56.8 % (36.0-66.0); PLATELET COUNT, AUTOMATED 139 10^3/uL (150-450); RED BLOOD COUNT 4.92 10^6/uL (4.30-6.10); WHITE BLOOD COUNT 5.6 10^3/uL (4.0-10.0)
[2024-05-18 16:37] LABS: ALBUMIN 3.8 G/DL (3.2-5.2); BILIRUBIN,TOTAL 0.5 MG/DL (0.3-1.2); CHOLESTEROL RISK RATIO 2.22 (<5); CREATININE FOR GFR 1.63 MG/DL (0.70-1.30); GLOMERULAR FILTRATION RATE 44.5 (>42); POTASSIUM SERUM 4.2 MMOL/L (3.5-5.1); TOTAL PROTEIN 6.8 G/DL (5.7-8.2)
[2024-05-18 16:45] LABS: TOTAL 25(OH) VITAMIN D 31.8 NG/ML (20.0-100.0)
== END ==
LOC: M PLALAB 12:37
PROVIDERS: ATTEND Family Medicine
DX: E55.9 Vitamin D deficiency, unspecified (principal); I10 Essential (primary) hypertension

== ENCOUNTER → 2024-05-31 | Outpatient (CLI) | payer MEDICARE, BC, OTHER ==
[2024-05-31 16:22] LABS: ALBUMIN 3.7 G/DL (3.2-5.2); ALKALINE PHOSPHATASE 66 U/L (40-129); ALT/SGPT 31 U/L (7.0-40); AST/SGOT 21 U/L (<34); BILIRUBIN,TOTAL 0.4 MG/DL (0.3-1.2); BLOOD UREA NITROGEN 23 MG/DL (9-23); CALCIUM LEVEL 8.7 MG/DL (8.3-10.6); CARBON DIOXIDE LEVEL 31 MMOL/L (20-31); CHLORIDE LEVEL 105 MMOL/L (98-107); CREATININE FOR GFR 1.25 MG/DL (0.70-1.30); GLOMERULAR FILTRATION RATE > 60.0 (>42); GLUCOSE, FASTING 88 MG/DL (74-106); MAGNESIUM LEVEL 2.1 MG/DL (1.8-2.4); POTASSIUM SERUM 4.2 MMOL/L (3.5-5.1); SODIUM LEVEL 143 MMOL/L (136-145); TOTAL PROTEIN 7.2 G/DL (5.7-8.2)
== END ==
LOC: M PLALAB 13:50
PROVIDERS: ATTEND Internal Medicine Cardiovascular Disease
DX: I50.32 Chronic diastolic (congestive) heart failure (principal); G47.33 Obstructive sleep apnea (adult) (pediatric); R06.02 Shortness of breath

== ENCOUNTER → 2024-07-20 | Outpatient (CLI) | payer MEDICARE, BC, OTHER | LOC: M PLALAB 15:01 | PROVIDERS: ATTEND Urology | DX: C61 Malignant neoplasm of prostate (principal) ==

== ENCOUNTER → 2024-11-22 | Outpatient (CLI) | payer MEDICARE, BC, OTHER ==
[~2024-11-22] MED LIST changes: +LORA-1164 PO; -LORA-622 PO; -PRAV20TA2 PO; +PRAV20TA78 PO
[2024-11-22 17:17] LABS: BASO # 0.0 10^3/uL (0.0-0.2); BASO % 0.8 % (0.0-1.0); EOS # 0.2 10^3/uL (0.0-0.5); EOS % 4.4 % (0.0-3.0); LYMPH # 1.4 10^3/uL (1.5-5.0); LYMPH % 27.5 % (24.0-44.0); MONO # 0.6 10^3/uL (0.0-0.8); MONO % 12.8 % (2.0-8.0); NEUTROPHILS # 2.7 10^3/uL (1.5-8.5); NEUTROPHILS % 54.1 % (36.0-66.0); PLATELET COUNT, AUTOMATED 176 10^3/uL (150-450)
[2024-11-22 17:20] LABS: CALCIUM LEVEL 8.3 MG/DL (8.3-10.6); CARBON DIOXIDE LEVEL 26.0 MMOL/L (20-31); CHLORIDE LEVEL 107.0 MMOL/L (98-107); CREATININE FOR GFR 1.29 MG/DL (0.70-1.30); GLOMERULAR FILTRATION RATE 58.9 (>42); POTASSIUM SERUM 4.3 MMOL/L (3.5-5.1); SODIUM LEVEL 145.0 MMOL/L (136-145)
== END ==
LOC: M PLALAB 14:19
PROVIDERS: ATTEND Family Medicine
DX: N18.31 Chronic kidney disease, stage 3a (principal); Z79.899 Other long term (current) drug therapy

== ENCOUNTER → 2025-03-15 | Outpatient (CLI) | payer MEDICARE, BC, OTHER ==
[~2025-03-15] MED LIST changes: -IBUP-1022 PO; +IBUP600T42 PO
[2025-03-15 16:07] LABS: BASO # 0.1 10^3/uL (0.0-0.2); BASO % 1.0 % (0.0-1.0); EOS # 0.2 10^3/uL (0.0-0.5); EOS % 3.4 % (0.0-3.0); LYMPH # 1.5 10^3/uL (1.5-5.0); LYMPH % 25.0 % (24.0-44.0); MONO # 0.6 10^3/uL (0.0-0.8); MONO % 10.5 % (2.0-8.0); NEUTROPHILS # 3.5 10^3/uL (1.5-8.5); NEUTROPHILS % 59.8 % (36.0-66.0); PLATELET COUNT, AUTOMATED 199 10^3/uL (150-450)
[2025-03-15 16:21] LABS: CALCIUM LEVEL 8.7 MG/DL (8.3-10.6); CARBON DIOXIDE LEVEL 30.0 MMOL/L (20-31); CHLORIDE LEVEL 104.0 MMOL/L (98-107); CREATININE FOR GFR 1.37 MG/DL (0.70-1.30); GLOMERULAR FILTRATION RATE 54.5 (>42); POTASSIUM SERUM 4.4 MMOL/L (3.5-5.1); SODIUM LEVEL 145.0 MMOL/L (136-145)
== END ==
LOC: M PLALAB 13:44
PROVIDERS: ATTEND Internal Medicine Cardiovascular Disease
DX: I50.32 Chronic diastolic (congestive) heart failure (principal); I48.0 Paroxysmal atrial fibrillation